=== PATIENT | female | born 2000 | race Caucasian/White ===

== ENCOUNTER → 2018-04-07 | Outpatient (CLI) | payer OTHER ==
--- NOTE | 2018-04-07 16:52 | US ---
EXAMINATION TYPE: Transabdominal DATE OF EXAM: 07/28/17 COMPARISON: CLINICAL HISTORY: O76 Absent Heart tones. Unable to get heart tones in office EXAM PERFORMED: Transabdominal (TA) EXAM MEASUREMENTS: GESTATIONAL AGE / DATING Physician Established: (11 weeks/1 days) EDC: 10/26/2018 Dates by Current Scan for: (11 weeks/3 days) EDC: 10/24/2018 MATERNAL ANATOMY Uterus: 10.7 x 7.0 x 7.7 Right Ovary: 2.7 x 1.7 x 1.7 cm Left Ovary: 3.0 x 1.8 x 2.0 cm Post CDS / Adnexa: no free fluid Presence of free fluid: no Presence of corpus luteal cyst: no Presence of subchorionic bleed: no GESTATION / SURVEY CRL: 4.6 cm (11 weeks/3 days) MSD: seen, not measured Yolk Sac (normal less than 6mm): not visualized Heart Rate: 161 bpm Rhythm: Normal IUP: Viable IUP Date of LMP: 01/10/2018, G1 Beta HcG (if available): Not available at this time Single live IUP measuring 11 weeks 3 days IMPRESSION: Ultrasound gestational age is 11 weeks 3 days. No complicating process seen. Amniotic fluid is adequa te.
[2018-04-07 18:17] LABS: HCT 43.2 % (34.0-46.0); HGB 14.8 gm/dL (11.4-16.0); MCH 29.1 pg (25.0-35.0); MCHC 34.2 g/dL (31.0-37.0); MCV 85.2 fL (80.0-100.0); Mean Platelet Volume 8.6; Platelet Count 197 k/uL (150-450); RBC 5.07 m/uL (3.80-5.40); RDW 13.1 % (11.5-15.5)
[2018-04-07 18:24] LABS: Glucose 73 mg/dL (74-99)
[2018-04-08 06:02] LABS: Toxoplasma Antibody (IgG) <3.0 IU/mL (<7.2); Toxoplasma Antibody (IgM) <3.0 AU/mL (<8.0)
== END | disposition home or self-care (01) ==
LOC: RADUSWWP 16:18
PROVIDERS: ATTEND Obstetrics & Gynecology
DX: O76 Abnormality in fetal heart rate and rhythm complicating labor and delivery (principal); Z34.01 Encounter for supervision of normal first pregnancy, first trimester; Z3A.11 11 weeks gestation of pregnancy
CPT/HCPCS: 76801; 82565; 82947; 85027; 86762; 86777; 86778; 86780; 86850; 86900; 86901; 87340

== ENCOUNTER 2018-08-24 10:41 | Outpatient (CLI) | payer OTHER ==
[2018-08-24 11:24] LABS: Appearance,Urine Clear (Clear); Bilirubin,Urine Negative (Negative); Blood,Urine Negative (Negative); Color,Urine Light Yellow; Glucose,Urine (UA) Negative (Negative); Ketones,Urine Negative (Negative); Leukocyte Esterase,Urine Negative (Negative); Nitrite,Urine Negative (Negative); Protein,Urine Negative (Negative); Specific Gravity,Urine 1.006 (1.001-1.035); Urobilinogen,Urine <2.0 mg/dL (<2.0)
[2018-08-24 11:35] LABS: Creatinine,Urine Random 42.2 mg/dL
[2018-08-24 11:41] VITALS: BP 146/89; PULSE 88; RESP 16; TEMP 96.5
--- NOTE | 2018-09-02 16:34 | P.MSEPDOC ---
Presenting Problems - Arrival Data Date of Arrival on Unit: 08/24/18 Time of Arrival on Unit: 10:38 Mode of Transport: Ambulatory - Complaint OB-Reason for Admission/Chief Complaint: PIH, Elevated Blood Pressure Comment: sent from office for elevated BPs Medical History - Information : 1 Para: 0 Term: 0 : 0 Abortions: Spontaneous or Elective: 0 Number of Living Children: 0 - Gestational Age Gestational Age by NAY (wks/days): 30 Weeks and 6 Days - History Complications: Smoker Review of Systems - Review of Systems Constitutional: No problems Breast: No problems ENT: No problems Cardiovascular: No problems Respiratory: No problems Gastrointestinal: No problems Genitourinary: No problems Musculoskeletal: No problems Neurological: No problems Skin: No problems Vital Signs - Temperature Temperature: 96.5 F Temperature Source: Temporal Artery Scan - Pulse Right Pulse Rate: 88 Pulse Assessment Method: Pulse Oximetry - Respirations Respiratory Rate: 16 O2 Sat by Pulse Oximetry: 97 - Blood Pressure Right Arm Blood Pressure: 146/89 Blood Pressure Mean: 108 Blood Pressure Source: Automatic Cuff Medical Screen Scoring (Pre) - Cervical Exam Dilation: Exam Deferred Effacement: Exam Deferred - Uterine Contractions Frequency: N/A Duration: N/A Intensity: N/A - Maternal Vital Signs Maternal Blood Pressure: Systolic >139 = 2 Signs of Preeclampsia: N/A Maternal Respirations: N/A - Pain Assessment Pain Intensity: 0 - Assessment Baseline FHR: 130 Heart Rate - NICHD Category: Category I (Normal) = 0 NST: Reactive Position: N/A - Total Score Total Score (Pre): 2 - Level of Risk Level of Risk: Low (0-5) Physician Notification (Pre) - Physician Notified Physician Notified Date: 08/24/18 Physician Notified Time: 11:15 Physician/Practitioner Notifed:: Dr Cavanaugh - Notification Comment Comment: Dr Cavanaugh called unit for update. Reported on BPs here, labs from [facility], UA pending, reactive NST, no PIH s/sx. Orders to d/c home with instructions, do no wait for UA, pt needs to go to office Thursday for BP check, and return to triage with worsening sx. Disposition - Disposition OB Disposition: Discharge to home Discharge Date: 08/24/18 Discharge Time: 11:30 I agree with the RN Medical Screening Exam: Yes Risk & Benefit of care provided described in d/c instruction: Yes Diagnosis: GESTATIONAL HTN W/O SIGNIFICANT PROTEINURIA, THIRD TRIMESTER
== END 2018-08-24 11:30 | disposition home or self-care (01) ==
LOC: FBPOP 10:41
PROVIDERS: ATTEND Obstetrics & Gynecology
DX: O13.3 Gestational [pregnancy-induced] hypertension without significant proteinuria, third trimester (principal); O99.333 Smoking (tobacco) complicating pregnancy, third trimester; F17.200 Nicotine dependence, unspecified, uncomplicated; Z3A.30 30 weeks gestation of pregnancy
CPT/HCPCS: 59025; 81003; 82570; 84156

== ENCOUNTER → 2018-08-24 | Outpatient (CLI) | payer OTHER ==
[2018-08-24 10:23] LABS: HCT 40.8 % (34.0-46.0); HGB 13.5 gm/dL (11.4-16.0); MCH 29.4 pg (25.0-35.0); MCHC 33.1 g/dL (31.0-37.0); MCV 88.8 fL (80.0-100.0); Mean Platelet Volume 9.1; Platelet Count 180 k/uL (150-450); RDW 14.4 % (11.5-15.5); WBC 9.8 k/uL (4.0-11.0)
[2018-08-24 10:48] LABS: ALT 20 U/L (9-52); AST 15 U/L (14-36); Blood Urea Nitrogen 5 mg/dL (7-17); LDH 392 U/L (313-618); Uric Acid 3.8 mg/dL (3.7-7.4)
== END | disposition home or self-care (01) ==
LOC: LABWHC1 09:33
PROVIDERS: ATTEND Obstetrics & Gynecology
DX: O13.9 Gestational [pregnancy-induced] hypertension without significant proteinuria, unspecified trimester (principal); Z3A.00 Weeks of gestation of pregnancy not specified
CPT/HCPCS: 36415; 82565; 83615; 84450; 84460; 84520; 84550; 85027

== ENCOUNTER 2018-08-25 13:49 | Outpatient (CLI) | payer OTHER ==
[2018-08-25 14:23] LABS: Amorphous Sediment,Urine Rare /hpf; Appearance,Urine Cloudy (Clear); Bilirubin,Urine Negative (Negative); Blood,Urine Negative (Negative); Color,Urine Yellow; Glucose,Urine (UA) Negative (Negative); Ketones,Urine 1+ (Negative); Leukocyte Esterase,Urine Negative (Negative); Mucus,Urine Occasional /hpf; Nitrite,Urine Negative (Negative); PH, Urine 6.5 (5.0-8.0); Protein,Urine Trace (Negative); Specific Gravity,Urine 1.026 (1.001-1.035); Squamous Epithelial Cell,Urine 4 /hpf (0-4); Urobilinogen,Urine <2.0 mg/dL (<2.0); WBC,Urine 3 /hpf (0-5)
[2018-08-25 14:51] LABS: Basophils % (A) 0 %; Eosinophils # (A) 0.1 k/uL (0-0.7); Eosinophils % (A) 1 %; HCT 37.1 % (34.0-46.0); HGB 12.6 gm/dL (11.4-16.0); Lymphocytes # (A) 1.7 k/uL (1.0-4.8); Lymphocytes % (A) 16 %; MCHC 33.9 g/dL (31.0-37.0); MCV 88.6 fL (80.0-100.0); Mean Platelet Volume 8.8; Monocytes # (A) 0.7 k/uL (0-1.0); Monocytes % (A) 7 %; Neutrophils % (A) 74 %; Platelet Count 188 k/uL (150-450); RBC 4.19 m/uL (3.80-5.40); RDW 13.7 % (11.5-15.5); WBC 10.9 k/uL (4.0-11.0)
[2018-08-25 14:59] LABS: ALT 16 U/L (9-52); AST 15 U/L (14-36); Blood Urea Nitrogen 8 mg/dL (7-17); LDH 338 U/L (313-618); Uric Acid 3.8 mg/dL (3.7-7.4)
[2018-08-25 15:05] VITALS: RESP 18; TEMP 96.8
[2018-08-25 15:14] LABS: Amphetamine Screen,Urine Not Detected (NotDetected); Barbiturate Screen,Urine Not Detected (NotDetected); Benzodiazepines Screen,Urine Not Detected (NotDetected); Cocaine Screen,Urine Not Detected (NotDetected); Methadone Screen, Urine Not Detected (NotDetected); Opiate Screen,Urine Not Detected (NotDetected); Oxycodone Screen, Urine Not Detected (NotDetected); Phencyclidine Screen,Urine Not Detected (NotDetected); Tricyclic Antidepressant,Urine Not Detected (NotDetected); Urn Cannabinoid Scrn Detected (NotDetected)
[2018-08-25 16:16] VITALS: BP 142/81; PULSE 93
--- NOTE | 2018-09-06 08:29 | P.MSEPDOC ---
Presenting Problems - Arrival Data Date of Arrival on Unit: 08/25/18 Time of Arrival on Unit: 13:49 Mode of Transport: Ambulatory - Complaint OB-Reason for Admission/Chief Complaint: Elevated Blood Pressure, Dizziness Comment: pt states having elevated bp at home 154/95 and 160/80's and some dizziness Medical History - Information : 1 Para: 0 Term: 0 : 0 Abortions: Spontaneous or Elective: 0 Number of Living Children: 0 - Gestational Age Gestational Age by NAY (wks/days): 31 Weeks and 0 Days Review of Systems - Review of Systems Constitutional: No problems Breast: No problems ENT: No problems Cardiovascular: No problems Respiratory: No problems Gastrointestinal: No problems Genitourinary: No problems Musculoskeletal: No problems Neurological: No problems Skin: No problems Vital Signs - Temperature Temperature: 96.8 F Temperature Source: Temporal Artery Scan - Pulse Right Brachial Pulse Rate: 93 Pulse Assessment Method: Automatic Cuff - Respirations Respiratory Rate: 18 Oxygen Delivery Method: Room Air - Blood Pressure Right Arm Blood Pressure: 142/81 Blood Pressure Mean: 101 Blood Pressure Source: Automatic Cuff Medical Screen Scoring (Pre) - Cervical Exam Dilation: Exam Deferred Effacement: Exam Deferred Membranes: Intact - Uterine Contractions Frequency: N/A Duration: N/A Intensity: N/A - Maternal Vital Signs Maternal Temperature: N/A Maternal Blood Pressure: Systolic >139 = 2 Signs of Preeclampsia: Headache = 1, Visual Disturbance = 1 Maternal Respirations: N/A - Pain Assessment Pain Location and Character: Head Pain Scale Used: Numeric (1 - 10) Pain Intensity: 2 Pain Description: *Acute, Aching Pain Behavior: None Exhibited Pain Aggravating Factors: None - Maternal Trauma Maternal Trauma: N/A - Assessment Baseline FHR: 135 Heart Rate - NICHD Category: Category I (Normal) = 0 NST: Reactive Position: N/A Station: N/A - Total Score Total Score (Pre): 4 - Level of Risk Level of Risk: Low (0-5) Physician Notification (Pre) - Physician Notified Physician Notified Date: 08/25/18 Physician Notified Time: 14:23 Physician/Practitioner Notifed:: Dr. Jaeger Spoke With: Dr. Jaeger New Order Received: Yes - Notification Comment Comment: repeat PIH labs, has hx of THC use, UDS ordered, will call her with results and updated bp's Medical Screen Scoring (Post) - Cervical Exam Dilation: Exam Deferred Effacement: Exam Deferred Membranes: Intact - Uterine Contractions Frequency: N/A Duration: N/A Intensity: N/A - Maternal Vital Signs Maternal Temperature: N/A Maternal Blood Pressure: Systolic >139 = 2 Signs of Preeclampsia: N/A, Headache = 1, Visual Disturbance = 1 Maternal Respirations: N/A - Pain Assessment Pain Scale Used: Numeric (1 - 10) Pain Intensity: 0 - Maternal Trauma Maternal Trauma: N/A - Assessment Heart Rate: 135 Heart Rate - NICHD Category: Category I (Normal) = 0 NST: Reactive Position: N/A Station: N/A - Total Score Total Score (Post): 4 - Post Treatment Level of Risk Post Treatment Level of Risk: Low (0-5) Physician Notification (Post) - Physician Notified Physician Notified Date: 08/25/18 Physician Notified Time: 15:32 Physician/Practitioner Notified:: Dr. Jaeger Spoke With: Dr. Jaeger New Order Received: Yes - Notification Comment Comment: Pt discharged home with instructions to go to office tomorrow and get bp and nst recheck and keep MFM appt on August 30, may check bp's at home couple times a day, if systolic is 160 or greater or diastolic is 110 or greater consistently with symptoms, she is to return to get assessed, Disposition - Disposition OB Disposition: Triage, Discharge to home, Written follow up instructions reviewed Discharge Date: 08/25/18 Discharge Time: 15:45 I agree with the RN Medical Screening Exam: Yes Risk & Benefit of care provided described in d/c instruction: Yes Diagnosis: GESTATIONAL HTN W/O SIGNIFICANT PROTEINURIA, UNSP TRIMESTER
== END 2018-08-25 15:45 | disposition home or self-care (01) ==
LOC: FBPOP 13:49
PROVIDERS: ATTEND Obstetrics & Gynecology
DX: O13.3 Gestational [pregnancy-induced] hypertension without significant proteinuria, third trimester (principal); Z3A.31 31 weeks gestation of pregnancy
CPT/HCPCS: 59025; 82570; 84156; 82565; 83615; 84450; 84460; 84520; 84550; 85025; 81001; 80306; G0463; 99215

== ENCOUNTER 2018-08-29 01:00 | Observation (INO) | payer OTHER ==
[2018-08-29 01:44] LABS: Amorphous Sediment,Urine Occasional /hpf; Amphetamine Screen,Urine Not Detected (NotDetected); Appearance,Urine Cloudy (Clear); Bacteria,Urine Rare /hpf; Barbiturate Screen,Urine Not Detected (NotDetected); Benzodiazepines Screen,Urine Not Detected (NotDetected); Bilirubin,Urine Negative (Negative); Blood,Urine Negative (Negative); Cocaine Screen,Urine Not Detected (NotDetected); Color,Urine Light Yellow; Glucose,Urine (UA) Negative (Negative); Ketones,Urine Negative (Negative); Leukocyte Esterase,Urine Negative (Negative); Methadone Screen, Urine Not Detected (NotDetected); Mucus,Urine Rare /hpf; Nitrite,Urine Negative (Negative); Opiate Screen,Urine Not Detected (NotDetected); Oxycodone Screen, Urine Not Detected (NotDetected); PH, Urine 6.5 (5.0-8.0); Phencyclidine Screen,Urine Not Detected (NotDetected); Protein,Urine Negative (Negative); Specific Gravity,Urine 1.009 (1.001-1.035); Squamous Epithelial Cell,Urine 1 /hpf (0-4); Tricyclic Antidepressant,Urine Not Detected (NotDetected); Urn Cannabinoid Scrn Detected (NotDetected); Urobilinogen,Urine <2.0 mg/dL (<2.0); WBC,Urine 3 /hpf (0-5)
[2018-08-29 01:53] LABS: Basophils % (A) 0 %; Eosinophils # (A) 0.2 k/uL (0-0.7); Eosinophils % (A) 1 %; HCT 36.3 % (34.0-46.0); HGB 12.5 gm/dL (11.4-16.0); Lymphocytes # (A) 2.1 k/uL (1.0-4.8); Lymphocytes % (A) 18 %; MCH 30.2 pg (25.0-35.0); MCHC 34.5 g/dL (31.0-37.0); MCV 87.4 fL (80.0-100.0); Mean Platelet Volume 8.9; Monocytes # (A) 0.9 k/uL (0-1.0); Monocytes % (A) 7 %; Neutrophils # (A) 8.2 k/uL (1.3-7.7); Neutrophils % (A) 70 %; Platelet Count 168 k/uL (150-450); RBC 4.15 m/uL (3.80-5.40); RDW 13.5 % (11.5-15.5); WBC 11.7 k/uL (4.0-11.0)
[2018-08-29 01:56] LABS: ALT 15 U/L (9-52); AST 15 U/L (14-36); Blood Urea Nitrogen 8 mg/dL (7-17); LDH 347 U/L (313-618)
[2018-08-29 02:55] VITALS: BMI 35.4
--- NOTE | 2018-08-29 08:00 | P.HPOB ---
History of Present Illness H&P Date: 08/29/18 Chief Complaint: Headache and hypertension. This patient is a 18-year-old 1 para 0 female estimated date of confinement 10/27/2018 estimated gestational age 31-4/7 weeks who presented to [facility] last evening after having a headache that did not go a way with Tylenol. Patient's care is per Dr. Cavanaugh and most recently has been seen him for gestational hypertension. Patient was in the office on August 24 had a blood pressure 150/90 and at that time was sent to labor and delivery for evaluation of preeclampsia. These labs were normal. Patient continued to have some elevated blood pressures apparently at home and return to the office on August 26. At that time blood pressures continued to be elevated is 130-140/90-100. Patient states that last evening she developed a headache and took some Tylenol and it did not really headache therefore she went to [facility]. Emergency department contacted me and I instructed her to come immediately to the [facility] labor and delivery for evaluation. Patient's was complicated by an abnormal ultrasound for which she was referred to [facility]. Ultrasound there approximately 1 month ago shows some synechia but no evidence of any abnormalities. Patient's also apparently been using marijuana throughout the . Patient states that her blood pressures at home were in the range of 160-170 systolic. Review of Systems Constitutional: Reports as per HPI Genitourinary: Reports Menstruation: Reports amenorrhea Neurological: Reports headaches Past Medical History Past Medical History: Musculoskeletal Disorder Additional Past Medical History / Comment(s): scoliosis History of Any Multi-Drug Resistant Organisms: None Reported Past Surgical History: No Surgical Hx Reported Past Anesthesia/Blood Transfusion Reactions: No Reported Reaction Past Psychological History: Depression Additional Psychological History / Comment(s): not diagnosed, no meds Smoking Status: Current some day smoker Past Alcohol Use History: None Reported Past Drug Use History: Marijuana Additional Drug Use History / Comment(s): positive urine screen - Past Family History Father Family Medical History: Coronary Artery Disease (CAD) Mother Family Medical History: Hypertension Medications and Allergies Home Medications Medication Instructions Recorded Confirmed Type No Known Home Medications 08/24/18 08/25/18 History Allergies Allergy/AdvReac Type Severity Reaction Status Date / Time amoxicillin Allergy Severe Swelling Verified 08/29/18 01:07 medroxyprogesterone Allergy Severe Swelling Verified 08/29/18 01:07 [From Depo-Provera] Exam Vital Signs Temp Pulse Resp BP Pulse Ox 08/29/18 02:36 70 16 152/75 08/29/18 01:07 97.0 F L 59 L 16 138/81 97 Intake and Output 08/28/18 08/29/18 08/29/18 22:59 06:59 14:59 Other: Weight 102.603 kg Results labs show she is B positive, hepatitis B is negative, HIV is nonreactive, rubella is immune, RPR is nonreactive, Glucola was unavailable. Ultrasound done by maternal medicine on August 05 showed a vertex infant 1254 g which is at the 59th percentile with normal anatomy. Random protein to creatinine ratio is 0.32 which is mildly elevated. Result Diagrams: 08/29/18 01:25 08/29/18 01:25 Abnormal Lab Results - Last 24 Hours (Table) 08/29/18 08/29/18 08/29/18 Range/Units 01:10 01:10 01:10 WBC (4.0-11.0) k/uL Neutrophils # (1.3-7.7) k/uL Creatinine (0.52-1.04) mg/dL Urine Appearance Cloudy H (Clear) Amorphous Sediment Occasional H (None) /hpf Urine Bacteria Rare H (None) /hpf Urine Mucus Rare H (None) /hpf U Random Total Protein 20 H (<12) mg/dL U Marijuana (THC) Screen Detected H (NotDetected) 08/29/18 08/29/18 Range/Units 01:25 01:25 WBC 11.7 H (4.0-11.0) k/uL Neutrophils # 8.2 H (1.3-7.7) k/uL Creatinine 0.49 L (0.52-1.04) mg/dL Urine Appearance (Clear) Amorphous Sediment (None) /hpf Urine Bacteria (None) /hpf Urine Mucus (None) /hpf U Random Total Protein (<12) mg/dL U Marijuana (THC) Screen (NotDetected) Assessment and Plan Assessment: This is a 18-year-old 1 para 0 female 31 4/7 weeks gestation who is admitted for evaluation of gestational hypertension possible early preeclampsia. Patient also has continuing substance abuse (marijuana) issues. Patient's blood pressures on admission here ranged from 132-152/75-88. Preeclampsia labs were repeated and normal however her random protein to creatinine ratio was mildly elevated at 0.32. Patient is also having persistence of a headache. Plan at this time is to continue inpatient evaluation. I'm going to repeat her blood work in the morning and begin a 24-hour urine. I'm also going to get a complete obstetrical ultrasound to check growth and fluid indices. Continue antepartum surveillance with NSTs every shift. Due to concern for evolving preeclampsia and prematurity I believe she will benefit at this time from beginning a course of Celestone. If patient were to develop worsening symptomatology or evolving preeclampsia then should be needed transferred to a tertiary facility for further evaluation and delivery. (1) 31 to 32 weeks gestation of Current Visit: Yes Status: Acute Code(s): [id number] - SNOMED Code(s): 31 0845475 (2) Gestational hypertension Current Visit: Yes Status: Acute Code(s): O13.9 - GESTATIONAL HTN W/O SIGNIFICANT PROTEINURIA, UNSP TRIMESTER SNOMED Code(s): 840867448 (3) Substance abuse affecting in third trimester, antepartum Current Visit: Yes Status: Acute Code(s): O99.323 - DRUG USE COMPLICATING , THIRD TRIMESTER SNOMED Code(s): 65524540
[2018-08-29] MEDS: BETAMET ACET-BETAMETH SOD PHOS 6 MG/ML VIAL IM SCH (08:11)
--- NOTE | 2018-08-29 08:43 | US ---
EXAMINATION TYPE: US OB >= 14 wk fetus DATE OF EXAM: 08/29/2018 COMPARISON: US CLINICAL HISTORY: Gestational hypertension HTN TECHNIQUE: Transabdominal (TA) GESTATIONAL AGE / DATING Physician Established: (31 weeks/4 days) EDC: 10/27/2018 Dates by First Scan: (32 weeks/0 days) EDC: 10/24/2018 Dates by Current Scan: (31 weeks/6 days) EDC: 10/25/2018 SURVEY IUP: Single PLACENTA: Anterior PREVIA: No Previa CHANG: 8.9 cm Oligohydramnios CERVICAL LENGTH (transabdominal: norm > 3.0cm): 3.8 cm BIOMETRY PRESENTATION: Vertex BPD: 8.4 cm 33 weeks / 5 days HC: 30.0 cm 32 weeks / 6 days AC: 27.5 cm 31 weeks / 4 days FL: 6.1 cm 31 weeks / 4 days ESTIMATED WEIGHT IN GRAMS: 1857 grams ESTIMATED WEIGHT IN LBS/OZ: 4 lbs. 2 oz. WEIGHT PERCENTAGE BASED ON ESTABLISHED DATES: 48.6% HC/AC: 1.08 Normal FL/AC: 22 Normal HEART RATE: 152 bpm RHYTHM: Normal Results given to Dr. Carl in L&D at time of exam IMPRESSION: BHATIA FETUS PRESENT IN A VERTEX LIE WITH A GESTATIONAL AGE OF 31 WEEKS 6 DAYS +/- 3 WEEKS. ESTIMA MARISSA DATE OF CONFINEMENT BASED ON THIS EXAMINATION IS 10/25/2018. THE TECHNOLOGIST COMMENTED ON OLIGOHYDRAMNIOS BUT THE AMNIOTIC FLUID INDEX OF 8.92 IS LOW BUT WITHIN NORMAL LIMITS.
--- NOTE | 2018-08-29 10:04 | P.MSEPDOC ---
Presenting Problems - Arrival Data Date of Arrival on Unit: 08/29/18 Time of Arrival on Unit: : Mode of Transport: Bed - Complaint OB-Reason for Admission/Chief Complaint: Headache, Elevated Blood Pressure Comment: states pressure elevated at home 160/100 Medical History - Information : 1 Para: 0 Term: 0 : 0 Abortions: Spontaneous or Elective: 0 Number of Living Children: 0 - Gestational Age Gestational Age by NAY (wks/days): 31 Weeks and 4 Days Review of Systems - Review of Systems Constitutional: No problems Breast: No problems ENT: No problems Cardiovascular: No problems Respiratory: No problems Gastrointestinal: No problems Genitourinary: No problems Musculoskeletal: No problems Neurological: No problems Skin: No problems Vital Signs - Temperature Temperature: 98.3 F Temperature Source: Temporal Artery Scan - Pulse Right Sitting Brachial Pulse Rate: 75 Pulse Assessment Method: Automatic Cuff - Respirations Respiratory Rate: 16 Oxygen Delivery Method: Room Air - Blood Pressure Right Arm Sitting Blood Pressure: 132/88 Blood Pressure Mean: 102 Blood Pressure Source: Automatic Cuff Medical Screen Scoring (Pre) - Cervical Exam Dilation: Exam Deferred Effacement: Exam Deferred Membranes: Intact - Uterine Contractions Frequency: N/A Duration: N/A Intensity: N/A - Maternal Vital Signs Maternal Temperature: N/A Maternal Blood Pressure: N/A Signs of Preeclampsia: Headache = 1 Maternal Respirations: N/A - Pain Assessment Pain Location and Character: Head Pain Scale Used: Numeric (1 - 10) Pain Intensity: 8 Pain Description: *Acute, Aching Pain Frequency: Constant Pain Duration: 11 Pain Duration Units: Hours Pain Behavior: None Exhibited Pain Aggravating Factors: None - Maternal Trauma Maternal Trauma: N/A - Assessment Baseline FHR: 130 Heart Rate - NICHD Category: Category I (Normal) = 0 NST: Reactive Position: N/A Station: N/A - Total Score Total Score (Pre): 1 - Level of Risk Level of Risk: Low (0-5) Physician Notification (Post) - Physician Notified Physician Notified Date: 08/29/18 Physician Notified Time: : Spoke With: Meseret Negrete Order Received: Yes (Admit OBV, 24 hour urine) Disposition - Disposition OB Disposition: Admit, Observe I agree with the RN Medical Screening Exam: Yes Risk & Benefit of care provided described in d/c instruction: Yes Diagnosis: GESTATIONAL HTN W/O SIGNIFICANT PROTEINURIA, THIRD TRIMESTER (Admission for evaluation.)
[2018-08-29] MEDS ORDERED: CALCIUM CARBONATE 500 MG CHEWABLE PO PRN (17:29)
[2018-08-30 00:28] VITALS: RESP 16
[2018-08-30 06:19] LABS: Basophils % (A) 0 %; Eosinophils % (A) 0 %; HCT 36.9 % (34.0-46.0); HGB 12.4 gm/dL (11.4-16.0); Lymphocytes % (A) 15 %; MCH 29.8 pg (25.0-35.0); MCHC 33.6 g/dL (31.0-37.0); MCV 88.6 fL (80.0-100.0); Mean Platelet Volume 8.7; Monocytes # (A) 0.9 k/uL (0-1.0); Monocytes % (A) 6 %; Neutrophils # (A) 10.7 k/uL (1.3-7.7); Neutrophils % (A) 76 %; Platelet Count 176 k/uL (150-450); RBC 4.17 m/uL (3.80-5.40); RDW 13.5 % (11.5-15.5); WBC 14.1 k/uL (4.0-11.0)
[2018-08-30 06:27] LABS: Albumin 3.5 g/dL (3.5-5.0); Bilirubin,Unconjugated 0.4 mg/dL (0.0-1.1); Total Bilirubin 0.4 mg/dL (0.2-1.3); Total Protein 6.3 g/dL (6.3-8.2); Uric Acid 4.9 mg/dL (3.7-7.4)
[2018-08-30] MEDS: BETAMET ACET-BETAMETH SOD PHOS 6 MG/ML VIAL IM SCH (08:10)
[2018-08-30 12:42] VITALS: BP 140/80; PULSE 56; TEMP 97.2
--- NOTE | 2018-08-30 13:06 | P.DS ---
Providers Date of admission: 08/29/18 02:20 Expected date of discharge: 08/30/18 Attending physician: Lester Cavanaugh Primary care physician: Lester Cavanaugh [facility] Course: Vaishali and seen and evaluated 2 times this morning. She voices no complaints her blood pressures remained stable in the 140s over 80s range. It is slightly elevated and likely represents mild preeclampsia. Her creatinine protein ratio was 0.31 and her total protein for 24 hours 414. Her platelets are normal is TLT were normal on physical exam vital signs otherwise are stable, heart regular, lungs clear, extremities without pain. There is no tenderness to epigastrium nor visual changes or headache is now resolved. It is also noted that she has normal 2+ deep tendon reflexes and no clonus. Therefore after discussion with the patient and is in speaking with the maternal- medicine specialist will plan to discharge her to home. She has an appointment there is been scheduled for at 9:30 in the morning and she will attend that appointment with maternal medicine to address any other changes that may be necessary as she is only 31 weeks gestation. She is aware should she have any significant elevations in her blood pressure which she is checking intermittently at home taking about 150/90-95 she is to report back to labor and delivery. She is also aware should she have any significant headaches, epigastric pain, visual changes or other signs or symptoms that could be operations representative of preeclampsia she needs to return to labor and delivery. She has scant peripheral edema at this time as well. As she is only 31 weeks she did receive a dose steroids for lung maturity just in case she needs to be delivered. As she is stable and this appears to mild preeclampsia Will try manage this on an outpatient basis for now but she is aware that she should be on modified bedrest and that there are any changes to her condition that she may end up being transferred or potentially need to be delivered early. All the questions were answered for her at this time. We'll discharged home with instructions to follow-up with maternal medicine on and then with me on Thursday. Patient Condition at Discharge: Stable Plan - Discharge Summary New Discharge Prescriptions: No Action No Known Home Medications Discharge Medication List No Known Home Medications 08/24/18 [History] Discharge Disposition: HOME SELF-CARE
== END 2018-08-30 12:35 | disposition home or self-care (01) ==
LOC: FBPOP 01:00 → 4FBP 02:20
PROVIDERS: ADMIT Obstetrics & Gynecology; ATTEND Obstetrics & Gynecology
DX: O13.3 Gestational [pregnancy-induced] hypertension without significant proteinuria, third trimester (principal); O99.323 Drug use complicating pregnancy, third trimester; F12.10 Cannabis abuse, uncomplicated; O99.343 Other mental disorders complicating pregnancy, third trimester; F32.9 Major depressive disorder, single episode, unspecified; O99.333 Smoking (tobacco) complicating pregnancy, third trimester; F17.200 Nicotine dependence, unspecified, uncomplicated; O99.89 Other specified diseases and conditions complicating pregnancy, childbirth and the puerperium; M41.9 Scoliosis, unspecified; Z88.0 Allergy status to penicillin; Z88.8 Allergy status to other drugs, medicaments and biological substances; Z3A.31 31 weeks gestation of pregnancy; Z82.49 Family history of ischemic heart disease and other diseases of the circulatory system
CPT/HCPCS: 59025; 96372 ×2; 82570; 80076; 84156 ×2; 81050; 82565; 83615 ×2; 84450; 84460; 84520; 84550 ×2; 85025 ×2; 81001; 80306; 76805; G0378 ×2; G0463; J0702 ×2; 99215

== ENCOUNTER 2018-09-06 10:53 | Outpatient (CLI) | payer OTHER ==
[2018-09-06 11:28] LABS: Appearance,Urine Clear (Clear); Bilirubin,Urine Negative (Negative); Blood,Urine Negative (Negative); Color,Urine Yellow; Glucose,Urine (UA) Negative (Negative); Ketones,Urine Negative (Negative); Leukocyte Esterase,Urine Negative (Negative); Mucus,Urine Few /hpf; Nitrite,Urine Negative (Negative); PH, Urine 7.5 (5.0-8.0); Protein,Urine 1+ (Negative); RBC,Urine 1 /hpf (0-5); Specific Gravity,Urine 1.026 (1.001-1.035); Squamous Epithelial Cell,Urine 6 /hpf (0-4); Urobilinogen,Urine <2.0 mg/dL (<2.0); WBC,Urine 3 /hpf (0-5)
[2018-09-06 11:49] LABS: ALT 12 U/L (9-52); AST 14 U/L (14-36); Blood Urea Nitrogen 7 mg/dL (7-17); LDH 353 U/L (313-618); Uric Acid 4.6 mg/dL (3.7-7.4)
[2018-09-06 12:16] LABS: Basophils % (A) 0 %; Eosinophils # (A) 0.1 k/uL (0-0.7); Eosinophils % (A) 1 %; HCT 38.4 % (34.0-46.0); HGB 12.4 gm/dL (11.4-16.0); Lymphocytes # (A) 1.9 k/uL (1.0-4.8); Lymphocytes % (A) 20 %; MCH 28.8 pg (25.0-35.0); MCHC 32.3 g/dL (31.0-37.0); MCV 89.2 fL (80.0-100.0); Monocytes # (A) 0.8 k/uL (0-1.0); Monocytes % (A) 8 %; Neutrophils # (A) 6.5 k/uL (1.3-7.7); Neutrophils % (A) 68 %; Platelet Count 188 k/uL (150-450); RBC 4.31 m/uL (3.80-5.40); RDW 13.7 % (11.5-15.5); WBC 9.5 k/uL (4.0-11.0)
--- NOTE | 2018-09-06 12:40 | US ---
EXAMINATION TYPE: US OB BPP wo non-stress DATE OF EXAM: 09/06/2018 COMPARISON: NONE CLINICAL HISTORY: 18-year-old female Pre-eclampsia. EXAM PERFORMED: Transabdominal (TA) FINDINGS: BPP PARAMETERS: PRESENTATION: vertex HEART RATE: 140 bpm RHYTHM: Normal CHANG: 10.3 cm (normal 7.5 - 27.3) DIAPHRAGM IMAGED: Yes BPP SCORIN. Breathin (1 episode of breathing of 30 second duration in 30 minutes of scanning time) 2. Movement: 2 (at least 3 discrete body movements in 30 minutes) 3. Tone: 2 (1 episode of active flexion/extension of limb) 4. CHANG: 2 (CHANG index > 5cm) TOTAL SCORE: 8 / 8 Report given to Wilma. IMPRESSION: Real-time scanning by the platinumsmith with a biophysical profile score assigned: 8 out of 8.
--- NOTE | 2018-09-15 08:16 | P.MSEPDOC ---
Presenting Problems - Arrival Data Date of Arrival on Unit: 09/06/18 Time of Arrival on Unit: 10:53 Mode of Transport: Ambulatory - Complaint OB-Reason for Admission/Chief Complaint: PIH Comment: sent from office with orders for pre-eclampsia labs, bpp and nst Medical History - Information : 1 Para: 0 Term: 0 : 0 Abortions: Spontaneous or Elective: 0 Number of Living Children: 0 - Gestational Age Gestational Age by NAY (wks/days): 32 Weeks and 5 Days - History Complications: Preeclampsia Physician Notification (Pre) - Physician Notified Physician Notified Date: 09/06/18 Physician Notified Time: 12:27 Physician/Practitioner Notifed:: Afshan Negrete Order Received: No (d/c home) Disposition - Disposition OB Disposition: Discharge to home Discharge Date: 09/06/18 Discharge Time: 12:30 I agree with the RN Medical Screening Exam: Yes Risk & Benefit of care provided described in d/c instruction: Yes Diagnosis: GESTATIONAL PROTEINURIA, THIRD TRIMESTER
== END 2018-09-06 12:30 | disposition home or self-care (01) ==
LOC: FBPOP 10:53
PROVIDERS: ATTEND Obstetrics & Gynecology
DX: O12.13 Gestational proteinuria, third trimester (principal); Z3A.32 32 weeks gestation of pregnancy
CPT/HCPCS: 59025; 82570; 84156; 82565; 83615; 84450; 84460; 84520; 84550; 85025; 81001; 76819; G0463; 99215

== ENCOUNTER 2018-09-13 11:32 | Outpatient (CLI) | payer OTHER ==
[2018-09-13 12:57] VITALS: BP 135/74; PULSE 93; RESP 18; TEMP 98
[2018-09-13 13:12] LABS: INR 0.9 (<1.2); Partial Thromboplastin Time 26.5 sec (22.0-30.0); Prothrombin Time 9.6 sec (9.0-12.0)
--- NOTE | 2018-09-13 13:13 | US ---
EXAMINATION TYPE: US OB BPP wo non-stress DATE OF EXAM: 09/13/2018 COMPARISON: US CLINICAL HISTORY: preeclampsia. Preeclampsia. EXAM PERFORMED: Transabdominal (TA) BPP PARAMETERS: PRESENTATION: Cephalic HEART RATE: 136 bpm RHYTHM: Normal CHANG: 14.31 DIAPHRAGM IMAGED: Yes BPP SCORIN. Breathin (1 episode of breathing of 30 second duration in 30 minutes of scanning time) 2. Movement: 2 (at least 3 discrete body movements in 30 minutes) 3. Tone: 2 (1 episode of active flexion/extension of limb) 4. CHANG: 2 (CHANG index > 5cm) TOTAL SCORE: 8 / 8
[2018-09-13 13:17] LABS: ALT 11 U/L (9-52); AST 15 U/L (14-36); Blood Urea Nitrogen 7 mg/dL (7-17); LDH 350 U/L (313-618); Total Bilirubin 0.3 mg/dL (0.2-1.3); Uric Acid 5.3 mg/dL (3.7-7.4)
--- NOTE | 2018-09-13 13:23 | US ---
EXAMINATION TYPE: US abdomen limited DATE OF EXAM: 09/13/2018 COMPARISON: NONE CLINICAL HISTORY: Cholestasis/gestational hypertension, substance abuse affecting EXAM MEASUREMENTS: Liver Length: 15.5 cm Gallbladder Wall: 0.28 cm CBD: 0.39 cm Right Kidney: 12.2 x 6.6 x 5.2 cm *Pt 33 weeks, 5 days . Limited study due to gas and body habitus. Pancreas: slightly obscured Liver: appears wnl Gallbladder: Internal echoes seen. ?artifact vs suggestive of sludge Evidence for sonographic Raymond's sign: No CBD: appears wnl Right Kidney: No hydronephrosis or masses seen There is no ascites. IMPRESSION: Exam is somewhat limited. Suspect tumefactive sludge present within the gallbladder.
[2018-09-13 13:30] LABS: Basophils % (A) 0 %; Eosinophils # (A) 0.1 k/uL (0-0.7); Eosinophils % (A) 2 %; HCT 36.3 % (34.0-46.0); HGB 12.1 gm/dL (11.4-16.0); Lymphocytes # (A) 1.8 k/uL (1.0-4.8); Lymphocytes % (A) 21 %; MCH 29.1 pg (25.0-35.0); MCHC 33.3 g/dL (31.0-37.0); MCV 87.4 fL (80.0-100.0); Mean Platelet Volume 9.2; Monocytes # (A) 0.7 k/uL (0-1.0); Monocytes % (A) 8 %; Neutrophils # (A) 5.9 k/uL (1.3-7.7); Neutrophils % (A) 67 %; Platelet Count 166 k/uL (150-450); RBC 4.15 m/uL (3.80-5.40); RDW 14.9 % (11.5-15.5); WBC 8.8 k/uL (4.0-11.0)
[2018-09-13 13:34] LABS: Amorphous Sediment,Urine Occasional /hpf; Appearance,Urine Turbid (Clear); Bilirubin,Urine Negative (Negative); Blood,Urine Negative (Negative); Color,Urine Yellow; Glucose,Urine (UA) Negative (Negative); Ketones,Urine Negative (Negative); Leukocyte Esterase,Urine Trace (Negative); Mucus,Urine Few /hpf; Nitrite,Urine Negative (Negative); Protein,Urine Trace (Negative); Specific Gravity,Urine 1.022 (1.001-1.035); Squamous Epithelial Cell,Urine 6 /hpf (0-4); Urobilinogen,Urine <2.0 mg/dL (<2.0)
--- NOTE | 2018-09-15 17:09 | P.MSEPDOC ---
Presenting Problems - Arrival Data Date of Arrival on Unit: 09/13/18 Time of Arrival on Unit: 11:32 Mode of Transport: Portable - Complaint OB-Reason for Admission/Chief Complaint: PIH Comment: sent from office with script Medical History - Information : 1 Para: 0 Term: 0 : 0 Abortions: Spontaneous or Elective: 0 Number of Living Children: 0 - Gestational Age Gestational Age by NAY (wks/days): 33 Weeks and 5 Days - History Complications: Hx. Substance Abuse Comment: pt states smokes marijuana Review of Systems - Review of Systems Constitutional: No problems Breast: No problems ENT: No problems Cardiovascular: No problems Respiratory: No problems Gastrointestinal: No problems Genitourinary: No problems Musculoskeletal: No problems Neurological: No problems Skin: No problems Vital Signs - Temperature Temperature: 98 F Temperature Source: Temporal Artery Scan - Pulse Right Sitting Brachial Pulse Rate: 93 Pulse Assessment Method: Automatic Cuff - Respirations Respiratory Rate: 18 Oxygen Delivery Method: Room Air O2 Sat by Pulse Oximetry: 97 - Blood Pressure Right Arm Sitting Blood Pressure: 135/74 Blood Pressure Mean: 94 Blood Pressure Source: Automatic Cuff Medical Screen Scoring (Pre) - Cervical Exam Dilation: Exam Deferred Effacement: Exam Deferred Membranes: Intact - Uterine Contractions Frequency: N/A Duration: N/A Intensity: N/A - Maternal Vital Signs Maternal Temperature: N/A Maternal Blood Pressure: N/A Signs of Preeclampsia: N/A Maternal Respirations: N/A - Assessment Baseline FHR: 125 Heart Rate - NICHD Category: Category I (Normal) = 0 NST: Reactive Position: N/A Station: N/A - Total Score Total Score (Pre): 0 - Level of Risk Level of Risk: Low (0-5) Physician Notification (Pre) - Notification Comment Comment: sent from office with script for pih work up and ultrasound Medical Screen Scoring (Post) - Cervical Exam Dilation: Exam Deferred Effacement: Exam Deferred - Uterine Contractions Frequency: N/A - Pain Assessment Pain Scale Used: Numeric (1 - 10) Pain Intensity: 0 - Assessment Heart Rate: 125 Heart Rate - NICHD Category: Category I (Normal) = 0 NST: Reactive - Total Score Total Score (Post): 0 - Post Treatment Level of Risk Post Treatment Level of Risk: Low (0-5) Physician Notification (Post) - Physician Notified Physician Notified Date: 09/13/18 Physician Notified Time: 13:50 Physician/Practitioner Notified:: Dr Cavanaugh Spoke With: Dr Cavanaugh New Order Received: Yes - Notification Comment Comment: May discahrge to home, send out bile salt labs will be available during next appt for review Disposition - Disposition OB Disposition: Discharge to home Discharge Date: 09/13/18 Discharge Time: 14:05 I agree with the RN Medical Screening Exam: Yes Risk & Benefit of care provided described in d/c instruction: Yes Diagnosis: GESTATIONAL HTN W/O SIGNIFICANT PROTEINURIA, THIRD TRIMESTER
== END 2018-09-13 14:05 | disposition home or self-care (01) ==
LOC: FBPOP 11:32
PROVIDERS: ATTEND Obstetrics & Gynecology
DX: O13.3 Gestational [pregnancy-induced] hypertension without significant proteinuria, third trimester (principal); O26.613 Liver and biliary tract disorders in pregnancy, third trimester; Z3A.33 33 weeks gestation of pregnancy
CPT/HCPCS: 59025; 82239; 82570; 84156; 82247; 82565; 83615; 84450; 84460; 84520; 84550; 85025; 85610; 85730; 81001; 87086; 76705; 76819; G0463; 99215

== ENCOUNTER 2018-09-21 02:55 | Outpatient (CLI) | payer OTHER ==
[2018-09-21 03:27] VITALS: BP 134/84; PULSE 94; RESP 16; TEMP 97
--- NOTE | 2018-09-23 08:30 | P.MSEPDOC ---
Presenting Problems - Arrival Data Date of Arrival on Unit: 09/21/18 Time of Arrival on Unit: 02:55 Mode of Transport: Ambulatory - Complaint OB-Reason for Admission/Chief Complaint: Other Comment: Elevated blood pressure at home and increased discomfort from heartburn causing her to vomit Medical History - Information : 1 Para: 0 Term: 0 : 0 Abortions: Spontaneous or Elective: 0 Number of Living Children: 0 - Gestational Age Gestational Age by NAY (wks/days): 34 Weeks and 6 Days - History Complications: Smoker Comment: Patient states that Dr. Cavanaugh thinks she may have "mild pre- eclampsia" in the beginning phase Review of Systems - Review of Systems Constitutional: No problems Breast: No problems ENT: No problems Cardiovascular: No problems Respiratory: No problems Gastrointestinal: No problems Genitourinary: No problems Musculoskeletal: No problems Neurological: No problems Skin: No problems Vital Signs - Temperature Temperature: 97.0 F Temperature Source: Temporal Artery Scan - Pulse Pulse Oximetery Pulse Rate: 94 Pulse Assessment Method: Pulse Oximetry - Respirations Respiratory Rate: 16 Oxygen Delivery Method: Room Air - Blood Pressure Supine Blood Pressure: 134/84 Blood Pressure Mean: 100 Blood Pressure Source: Automatic Cuff Medical Screen Scoring (Pre) - Cervical Exam Dilation: Exam Deferred Effacement: Exam Deferred Membranes: Intact - Uterine Contractions Frequency: N/A Duration: N/A Intensity: N/A - Maternal Vital Signs Maternal Temperature: N/A Maternal Blood Pressure: N/A Signs of Preeclampsia: N/A Maternal Respirations: N/A - Maternal Trauma Maternal Trauma: N/A - Assessment Baseline FHR: 135 Heart Rate - NICHD Category: Category I (Normal) = 0 NST: Reactive Position: N/A Station: N/A - Total Score Total Score (Pre): 0 - Level of Risk Level of Risk: Low (0-5) Physician Notification (Pre) - Physician Notified Physician Notified Date: 09/21/18 Physician Notified Time: 03:16 Physician/Practitioner Notifed:: Dr. Robert Negrete Order Received: Yes - Notification Comment Comment: Okay to discharge patient home with instructions after a reactive NST is obtained. Disposition - Disposition OB Disposition: Discharge to home, Written follow up instructions reviewed Discharge Date: 09/21/18 Discharge Time: 03:38 I agree with the RN Medical Screening Exam: Yes Risk & Benefit of care provided described in d/c instruction: Yes Diagnosis: HEARTBURN
== END 2018-09-21 03:38 | disposition home or self-care (01) ==
LOC: FBPOP 02:55
PROVIDERS: ATTEND Obstetrics & Gynecology
DX: O99.89 Other specified diseases and conditions complicating pregnancy, childbirth and the puerperium (principal); R12 Heartburn; Z3A.34 34 weeks gestation of pregnancy
CPT/HCPCS: 59025; G0463; 99213

== ENCOUNTER 2018-09-22 11:14 | Outpatient (CLI) | payer OTHER ==
[2018-09-22 12:18] LABS: Basophils % (A) 0 %; Eosinophils # (A) 0.1 k/uL (0-0.7); Eosinophils % (A) 2 %; HCT 37.9 % (34.0-46.0); HGB 12.2 gm/dL (11.4-16.0); Lymphocytes # (A) 1.6 k/uL (1.0-4.8); Lymphocytes % (A) 20 %; MCH 28.5 pg (25.0-35.0); MCHC 32.2 g/dL (31.0-37.0); MCV 88.6 fL (80.0-100.0); Mean Platelet Volume 9.3; Monocytes # (A) 0.7 k/uL (0-1.0); Monocytes % (A) 8 %; Neutrophils # (A) 5.8 k/uL (1.3-7.7); Neutrophils % (A) 68 %; Platelet Count 168 k/uL (150-450); RBC 4.28 m/uL (3.80-5.40); RDW 13.9 % (11.5-15.5); WBC 8.4 k/uL (4.0-11.0)
[2018-09-22 12:24] LABS: ALT 11 U/L (9-52); AST 14 U/L (14-36); African American GFR (CKD) >90 (>60 ml/min/1.73 sqM); Blood Urea Nitrogen 8 mg/dL (7-17); LDH 373 U/L (313-618); Uric Acid 5.2 mg/dL (3.7-7.4)
[2018-09-22 12:26] VITALS: BP 170/93; PULSE 110; RESP 18; TEMP 96.8
[2018-09-22 12:47] LABS: Appearance,Urine Cloudy (Clear); Bilirubin,Urine Negative (Negative); Blood,Urine Negative (Negative); Calcium Oxalate Crystals,Urine Moderate /hpf; Color,Urine Yellow; Glucose,Urine (UA) Negative (Negative); Ketones,Urine Negative (Negative); Leukocyte Esterase,Urine Negative (Negative); Mucus,Urine Few /hpf; Nitrite,Urine Negative (Negative); Protein,Urine 1+ (Negative); RBC,Urine 3 /hpf (0-5); Specific Gravity,Urine 1.033 (1.001-1.035); Squamous Epithelial Cell,Urine 7 /hpf (0-4); WBC,Urine 5 /hpf (0-5)
--- NOTE | 2018-09-22 12:51 | US ---
EXAMINATION TYPE: US OB BPP wo non-stress DATE OF EXAM: 09/22/2018 COMPARISON: US CLINICAL HISTORY: PIH. PIH, preeclampsia. Smoker. EXAM PERFORMED: Transabdominal (TA) BPP PARAMETERS: PRESENTATION: Vertex HEART RATE: 136 bpm RHYTHM: Normal CHANG: 14.93 cm DIAPHRAGM IMAGED: yes BPP SCORIN. Breathin (1 episode of breathing of 30 second duration in 30 minutes of scanning time) 2. Movement: 2 (at least 3 discrete body movements in 30 minutes) 3. Tone: 2 (1 episode of active flexion/extension of limb) 4. CHANG: 2 (CHANG index > 5cm) TOTAL SCORE: 8 / 8 Tech: NW/CF
--- NOTE | 2018-10-02 12:07 | P.MSEPDOC ---
Presenting Problems - Arrival Data Date of Arrival on Unit: 09/22/18 Time of Arrival on Unit: 11:15 Mode of Transport: Portable - Complaint OB-Reason for Admission/Chief Complaint: PIH Comment: pih lab workup, nst and bpp Medical History - Information : 1 Para: 0 Term: 0 : 0 Number of Living Children: 0 - Gestational Age Gestational Age by NAY (wks/days): 35 Weeks and 0 Days - History Complications: Chronic HTN Review of Systems - Review of Systems Constitutional: No problems Breast: No problems ENT: No problems Cardiovascular: No problems Respiratory: No problems Gastrointestinal: No problems Genitourinary: No problems Musculoskeletal: No problems Neurological: No problems Skin: No problems Vital Signs - Temperature Temperature: 96.8 F Temperature Source: Temporal Artery Scan - Pulse Right Brachial Pulse Rate: 110 - Respirations Respiratory Rate: 18 Oxygen Delivery Method: Room Air O2 Sat by Pulse Oximetry: 97 - Blood Pressure Right Arm Blood Pressure: 170/93 Blood Pressure Mean: 118 Blood Pressure Source: Automatic Cuff Medical Screen Scoring (Pre) - Cervical Exam Dilation: Exam Deferred Effacement: Exam Deferred Membranes: Intact - Uterine Contractions Frequency: N/A Duration: N/A Intensity: N/A - Maternal Vital Signs Maternal Temperature: N/A Maternal Blood Pressure: N/A Signs of Preeclampsia: N/A Maternal Respirations: N/A - Maternal Trauma Maternal Trauma: N/A - Assessment - Baby A Baseline FHR: 140 Heart Rate - NICHD Category: Category I (Normal) = 0 NST: Reactive Position: N/A Station: N/A - Total Score - Baby A Total Score - Baby A: 0 - Level of Risk - Baby A Level of Risk - Baby A: Low (0-5) - Pain Assessment Pain Scale Used: Numeric (1 - 10) Pain Intensity: 0 Physician Notification (Pre) - Physician Notified Spoke With: adilson New Order Received: Yes - Notification Comment Comment: discharge home. pt without s/sx of pih- no headache. blurred vision, epig pain or edema. dtr bilat patell. 2+ without clonus. labs wnl except 1+ proteinuria. protein creat ratio of 0.18. biophys profile 12/02/ to go home and resume orders as before. light activity. to return on sat or sun for repeat of nst and b/p rechecks. verb underst. Medical Screen Scoring (Post) - Cervical Exam Dilation: Exam Deferred Effacement: Exam Deferred Membranes: Intact - Uterine Contractions Frequency: N/A Duration: N/A Intensity: N/A - Maternal Vital Signs Maternal Temperature: N/A Maternal Blood Pressure: N/A Signs of Preeclampsia: N/A Maternal Respirations: N/A - Pain Assessment Pain Scale Used: Numeric (1 - 10) Pain Intensity: 0 - Maternal Trauma Maternal Trauma: N/A - Assessment - Baby A Heart Rate: 135 Heart Rate - NICHD Category: Category I (Normal) = 0 NST: Reactive Position: N/A Station: N/A - Total Score Total Score - Baby A: 0 - Post Treatment Level of Risk Post Treatment Level of Risk - Baby A: Low (0-5) Physician Notification (Post) - Physician Notified Physician Notified Date: 09/22/18 Physician Notified Time: 13:30 Spoke With: adilson Negrete Order Received: Yes - Notification Comment Comment: discharge home. return thu or thursday for rpeeat nst and b/p rechecks Disposition - Disposition OB Disposition: Discharge to home Discharge Date: 09/22/18 Discharge Time: 13:30 I agree with the RN Medical Screening Exam: Yes Risk & Benefit of care provided described in d/c instruction: Yes Diagnosis: GESTATIONAL HTN W/O SIGNIFICANT PROTEINURIA, THIRD TRIMESTER
== END 2018-09-22 13:30 | disposition home or self-care (01) ==
LOC: FBPOP 11:14
PROVIDERS: ATTEND Obstetrics & Gynecology
DX: O13.3 Gestational [pregnancy-induced] hypertension without significant proteinuria, third trimester (principal); Z3A.35 35 weeks gestation of pregnancy
CPT/HCPCS: 59025; 82570; 84156; 82565; 83615; 84450; 84460; 84520; 84550; 85025; 81001; 76819; G0463 ×2; 99213; 99215

== ENCOUNTER 2018-09-22 23:00 | Outpatient (CLI) | payer OTHER ==
[2018-09-22 23:30] VITALS: BP 143/88; PULSE 76; RESP 16; TEMP 98.3
--- NOTE | 2018-09-23 03:46 | P.MSEPDOC ---
Presenting Problems - Arrival Data Date of Arrival on Unit: 09/22/18 Time of Arrival on Unit: 23:00 Mode of Transport: Ambulatory - Complaint OB-Reason for Admission/Chief Complaint: Headache Comment: Patient presents to triage with complaints of a headache that started around 1600 this evening and is unrelieved with tylenol, patient was seen in triage earlier today around 1300 and labs were drawn at that time. Medical History - Information : 1 Para: 0 Term: 0 : 0 Abortions: Spontaneous or Elective: 0 Number of Living Children: 0 - Gestational Age Gestational Age by NAY (wks/days): 35 Weeks and 0 Days - History Comment: Patient states that Dr. Cavanaugh told her she is in the "beginning st ages of pre-eclampsia" Review of Systems - Review of Systems Constitutional: No problems Breast: No problems ENT: No problems Cardiovascular: No problems Respiratory: No problems Gastrointestinal: No problems Genitourinary: No problems Musculoskeletal: No problems Neurological: No problems Skin: No problems Vital Signs - Temperature Temperature: 98.3 F Temperature Source: Temporal Artery Scan - Pulse Pulse Oximetery Pulse Rate: 76 Pulse Assessment Method: Automatic Cuff - Respirations Respiratory Rate: 16 Oxygen Delivery Method: Room Air - Blood Pressure Sitting Blood Pressure: 143/88 Blood Pressure Mean: 106 Blood Pressure Source: Automatic Cuff Medical Screen Scoring (Pre) - Cervical Exam Dilation: Exam Deferred Effacement: Exam Deferred Membranes: Intact - Uterine Contractions Frequency: N/A Duration: N/A Intensity: N/A - Maternal Vital Signs Maternal Temperature: N/A Maternal Blood Pressure: Systolic >139 = 2 Signs of Preeclampsia: Headache = 1 Maternal Respirations: N/A - Pain Assessment Pain Location and Character: Generalized, Head Pain Scale Used: Numeric (1 - 10) Pain Intensity: 9 Pain Management Goal: 5 Pain Description: Aching Pain Radiation Location: 0 Pain Frequency: Constant Pain Duration: 6 Pain Duration Units: Hours Pain Behavior: Vocalization Effects of Pain: 0 - Maternal Trauma Maternal Trauma: N/A - Assessment Baseline FHR: 130 Heart Rate - NICHD Category: Category I (Normal) = 0 NST: Reactive Position: N/A Station: N/A - Total Score Total Score (Pre): 3 - Level of Risk Level of Risk: Low (0-5) Physician Notification (Pre) - Physician Notified Physician Notified Date: 09/22/18 Physician Notified Time: 23:24 Physician/Practitioner Notifed:: Dr. Carl New Order Received: Yes - Notification Comment Comment: Orders given to discharge patient home with instructions and to keep regularly scheduled appt with Dr. Cavanaugh Disposition - Disposition OB Disposition: Discharge to home, Written follow up instructions reviewed Discharge Date: 09/22/18 Discharge Time: 23:35 I agree with the RN Medical Screening Exam: Yes Risk & Benefit of care provided described in d/c instruction: Yes Diagnosis: GESTATIONAL HTN W/O SIGNIFICANT PROTEINURIA, THIRD TRIMESTER (Patient presented with complaints of a headache. Patient was here earlier today and had evaluation per Dr. Heaton for gestational hypertension. Laboratory evaluation was normal. Patient was discharged home to follow up with Dr. Heaton in the office. Repeat blood pressures at this time are good and actually improved from being here earlier today. heart tones are category 1. Patient was instructed to follow up with Dr. Heaton on Thursday or earlier if other concerns and to return to labor and delivery if any continued concerns. There is no evidence of maternal compromise at this time.)
== END 2018-09-22 23:35 | disposition home or self-care (01) ==
LOC: FBPOP 23:00
PROVIDERS: ATTEND Obstetrics & Gynecology
DX: O13.3 Gestational [pregnancy-induced] hypertension without significant proteinuria, third trimester (principal); Z3A.35 35 weeks gestation of pregnancy
CPT/HCPCS: 59025; G0463; 99213

== ENCOUNTER 2018-09-25 13:55 | Outpatient (CLI) | payer OTHER ==
[2018-09-25 15:02] VITALS: BP 145/87; PULSE 113; RESP 16; TEMP 98.5
--- NOTE | 2018-09-26 11:35 | P.MSEPDOC ---
Presenting Problems - Arrival Data Date of Arrival on Unit: 09/25/18 Time of Arrival on Unit: 13:55 Mode of Transport: Ambulatory - Complaint OB-Reason for Admission/Chief Complaint: NST, Elevated Blood Pressure Comment: pt here for weekly NST and BP check Medical History - Information : 1 Para: 0 Term: 0 : 0 Abortions: Spontaneous or Elective: 0 Number of Living Children: 0 - Gestational Age Gestational Age by NYA (wks/days): 35 Weeks and 3 Days - History Complications: Preeclampsia, Smoker Review of Systems - Review of Systems Constitutional: No problems Breast: No problems ENT: No problems Cardiovascular: No problems Respiratory: No problems Gastrointestinal: No problems Genitourinary: No problems Musculoskeletal: No problems Neurological: No problems Skin: No problems Vital Signs - Temperature Temperature: 98.5 F Temperature Source: Oral - Pulse Right Brachial Pulse Rate: 113 Pulse Assessment Method: Automatic Cuff - Respirations Respiratory Rate: 16 Oxygen Delivery Method: Room Air O2 Sat by Pulse Oximetry: 96 - Blood Pressure Right Arm Blood Pressure: 145/87 Blood Pressure Mean: 106 Blood Pressure Source: Automatic Cuff Medical Screen Scoring (Pre) - Cervical Exam Dilation: Exam Deferred - Uterine Contractions Frequency: N/A Duration: N/A Intensity: N/A - Maternal Vital Signs Maternal Temperature: N/A Maternal Blood Pressure: Systolic >139 = 2 Signs of Preeclampsia: N/A Maternal Respirations: N/A - Pain Assessment Pain Scale Used: Numeric (1 - 10) Pain Intensity: 0 Pain Behavior: None Exhibited - Assessment Baseline FHR: 135 Heart Rate - NICHD Category: Category I (Normal) = 0 NST: Reactive Position: N/A - Total Score Total Score (Pre): 2 - Level of Risk Level of Risk: Low (0-5) Physician Notification (Pre) - Physician Notified Physician Notified Date: 09/25/18 Physician Notified Time: 14:47 Physician/Practitioner Notifed:: Mil Spoke With: Mil New Order Received: No - Notification Comment Comment: pt ma be discharged home Physician Notification (Post) - Physician Notified Physician Notified Date: 09/25/18 Physician Notified Time: 14:47 Physician/Practitioner Notified:: Mil Spoke With: Mil New Order Received: No - Notification Comment Comment: pt here for weekly NST and BP check Disposition - Disposition OB Disposition: Discharge to home Discharge Date: 09/25/18 Discharge Time: 14:50 I agree with the RN Medical Screening Exam: Yes Risk & Benefit of care provided described in d/c instruction: Yes Diagnosis: GESTATIONAL HTN W/O SIGNIFICANT PROTEINURIA, THIRD TRIMESTER
== END 2018-09-25 14:50 | disposition home or self-care (01) ==
LOC: FBPOP 13:55
PROVIDERS: ATTEND Obstetrics & Gynecology
DX: O13.3 Gestational [pregnancy-induced] hypertension without significant proteinuria, third trimester (principal); O99.333 Smoking (tobacco) complicating pregnancy, third trimester; Z3A.35 35 weeks gestation of pregnancy
CPT/HCPCS: 59025; G0463; 99213

== ENCOUNTER 2018-09-28 10:05 | Inpatient (IN) | payer OTHER ==
[2018-09-28 10:49] LABS: Basophils % (A) 0 %; Eosinophils # (A) 0.1 k/uL (0-0.7); Eosinophils % (A) 1 %; HCT 38.7 % (34.0-46.0); Lymphocytes # (A) 1.4 k/uL (1.0-4.8); Lymphocytes % (A) 21 %; MCH 29.6 pg (25.0-35.0); MCHC 33.7 g/dL (31.0-37.0); MCV 87.9 fL (80.0-100.0); Mean Platelet Volume 9.5; Monocytes # (A) 0.5 k/uL (0-1.0); Monocytes % (A) 7 %; Neutrophils # (A) 4.6 k/uL (1.3-7.7); Neutrophils % (A) 68 %; Platelet Count 170 k/uL (150-450); WBC 6.8 k/uL (4.0-11.0)
[2018-09-28 10:53] LABS: ALT 8 U/L (9-52); AST 15 U/L (14-36); African American GFR (CKD) >90 (>60 ml/min/1.73 sqM); Blood Urea Nitrogen 7 mg/dL (7-17); LDH 380 U/L (313-618); Uric Acid 4.8 mg/dL (3.7-7.4)
[2018-09-28] MEDS ORDERED: LABETALOL 100 MG TAB PO STA (11:07)
--- NOTE | 2018-09-28 11:51 | US ---
EXAMINATION TYPE: US OB BPP wo non-stress DATE OF EXAM: 09/28/2018 COMPARISON: US CLINICAL HISTORY: preeclamsia. Preeclampsia. Smoker. EXAM PERFORMED: Transabdominal (TA) BPP PARAMETERS: PRESENTATION: Cephalic LIE: Long?? HEART RATE: 141 bpm RHYTHM: Normal CHANG: 16.37 DIAPHRAGM IMAGED: Yes BPP SCORIN. Breathin (1 episode of breathing of 30 second duration in 30 minutes of scanning time) 2. Movement: 2 (at least 3 discrete body movements in 30 minutes) 3. Tone: 2 (1 episode of active flexion/extension of limb) 4. CHANG: 2 (CHANG index > 5cm) TOTAL SCORE: 8 / 8
[2018-09-28 11:53] LABS: Appearance,Urine Cloudy (Clear); Bacteria,Urine Rare /hpf; Bilirubin,Urine Negative (Negative); Blood,Urine Negative (Negative); Color,Urine Yellow; Glucose,Urine (UA) Negative (Negative); Ketones,Urine Negative (Negative); Leukocyte Esterase,Urine Negative (Negative); Mucus,Urine Rare /hpf; Nitrite,Urine Negative (Negative); Protein,Urine 1+ (Negative); RBC,Urine <1 /hpf (0-5); Specific Gravity,Urine 1.028 (1.001-1.035); Squamous Epithelial Cell,Urine 9 /hpf (0-4); Urobilinogen,Urine <2.0 mg/dL (<2.0); WBC,Urine 3 /hpf (0-5)
--- NOTE | 2018-09-28 12:20 | US ---
EXAMINATION TYPE: US OB >= 14 wk fetus DATE OF EXAM: 09/28/2018 COMPARISON: US CLINICAL HISTORY: preeclampsiaPreeclampsia. Smoker. TECHNIQUE: Transabdominal (TA) GESTATIONAL AGE / DATING Physician Established: (35 weeks/6 days) EDC: 10/27/2018 Dates by LMP: Unknown Dates by First Scan: (36 weeks/2 days) EDC: 10/24/2018 Dates by Current Scan: (34 weeks/6 days) EDC: 11/03/2018 SURVEY IUP: Single PLACENTA: Anterior PREVIA: No Previa CHANG: 16.08 cm Normal CERVICAL LENGTH (transabdominal: norm > 3.0cm): 3.48 cm BIOMETRY PRESENTATION: Vertex LIE: Longitudinal BPD: 9.0 cm 36 weeks / 3 days HC: 31.61 cm 35 weeks / 4 days AC: 31.29 cm 35 weeks / 2 days FL: 6.69 cm 34 weeks / 3 days ESTIMATED WEIGHT IN GRAMS: 2608 grams ESTIMATED WEIGHT IN LBS/OZ: 5 lbs. 12 oz. WEIGHT PERCENTAGE BASED ON ESTABLISHED DATES: 31.0% HC/AC: 1.01 Normal FL/AC: 21.38 Normal HEART RATE: 139 bpm RHYTHM: Normal Could only get one set of head measurements due to position. IMPRESSION: Limited survey. Single viable intrauterine corresponding to ultrasound age 34 weeks 6 days with estimated date of delivery 11/03/2018.
[2018-09-28] MEDS ORDERED: OXYTOCIN 10 UNIT/ML 1 ML VIAL IM PRN (12:42)
[2018-09-28] MEDS ORDERED: TERBUTALINE 1 MG/ML VIAL SQ PRN (12:42)
[2018-09-28] MEDS ORDERED: CARBOPROST TROMETHAMINE 250 MCG/ML 1 ML AMP IM PRN (12:42)
[2018-09-28] MEDS ORDERED: METHYLERGONOVINE 0.2 MG/ML 1 ML AMP IM PRN (12:42)
[2018-09-28] MEDS ORDERED: LIDOCAINE 0.5% (PF) 5 MG/ML (50 ML SDV) SQ PRN (12:42)
[2018-09-28] MEDS ORDERED: OXYTOCIN 30 UNITS/500 ML NS 30 UNIT in SALINE 1 500ML.BAG IV SCH (12:45)
[2018-09-28] MEDS ORDERED: hydrALAZINE HCL 20 MG/ML 1 ML VIAL IVP PRN (12:47)
[2018-09-28] MEDS ORDERED: LABETALOL SYRINGE 5 MG/ML IVP PRN ×3 (12:47)
--- NOTE | 2018-09-28 12:53 | P.HPOB ---
History of Present Illness H&P Date: 09/28/18 Chief Complaint: Intrauterine at term: Preeclampsia versus severe gestational hype Patient is a 18-year-old at 35 weeks 6 days gestation who ryes the office with elevated blood pressure again today. She is been followed with maternal medicine and has had a history of elevated blood pressures since approximately 30 weeks. She was admitted to [facility] with suspected preeclampsia earlier in the and we have followed her closely ever since. Today seen in the office her blood pressures 156/94 and she was sent to labor and delivery for biophysical profile, NST and her weekly blood work. Blood work is all returned basically normal with an high normal routine creatinine ratio of 0.25. However, in labor and deliver her blood pressures have ranged anywhere from 150/92 170/95. Due to the significant elevation in her blood pressure and her complaining of some headaches and some minimal visual changes we are admitting her and planning induction of labor at the advice of maternal- medicine. I did speak with dr Freedman and this was the recommendation we came up with. She did receive 2 doses of steroids approximately 3 weeks ago. As such there is limited benefit from repeating the dose of steroids this time. She'll be 36 weeks in all likelihood by the time she delivers tonight. Risks of delivery were reviewed with the patient in detail but all questions have been answered for her. In multiple discussions with maternal- medicine the expectation was that she would end up delivering sometime between 36 and 37 week s anyway as our concern was that her preeclampsia would rapidly worsen which it may be in the process of doing today. On physical exam vital signs again show elevated blood pressure otherwise are stable. Heart regular, lungs clear, extremities without pain. There is minimal edema noted bilateral lower extremity. Her deep tendon reflexes are +2 bilaterally. Labs again reviewed with no clear preeclamptic numbers. She is not in help. At this time due to her minimal outward symptomatology and essentially normal labs will plan on starting mag sulfate, however if she begins to have more elevations in her blood pressure or other medications are required to help control her blood pressure a full catheter will be placed and she will be started on magnesium sulfate. She is aware of these risks, would very much like to at least get her into labor before we need to start her on mag sulfate. She is aware of increased risk for section as well and if her blood pressures continued to be significantly elevated and we're unable to control them well and she is remote from delivery she will undergo a section. Assessment intrauterine with atypical preeclampsia/gestational hypertension Plan Pitocin augmentation of labor and artificial rupture membranes with expectation for spontaneous vaginal delivery. She does have significant scoliosis so IV pain medicine will be used rather than an epidural. The real question will be how bad as her scoliosis with regard to needing a spinal should she need a section will have anesthesia do an evaluation and make re commendations. Past Medical History Past Medical History: Musculoskeletal Disorder Additional Past Medical History / Comment(s): scoliosis History of Any Multi-Drug Resistant Organisms: None Reported Past Surgical History: No Surgical Hx Reported Past Anesthesia/Blood Transfusion Reactions: No Reported Reaction Smoking Status: Current every day smoker - Past Family History Father Family Medical History: Coronary Artery Disease (CAD) Mother Family Medical History: Hypertension Medications and Allergies Home Medications Medication Instructions Recorded Confirmed Type Acetaminophen [Tylenol] 1,000 mg PO Q6HR PRN 09/22/18 09/28/18 History Calcium Carbonate [Tums] 1 tab PO DAILY 09/25/18 09/28/18 History Allergies Allergy/AdvReac Type Severity Reaction Status Date / Time amoxicillin Allergy Severe Swelling Verified 09/28/18 10:15 medroxyprogesterone Allergy Severe Swelling Verified 09/28/18 10:15 [From Depo-Provera] Exam Osteopathic Statement: *. No significant issues noted on an osteopathic structural exam other than those noted in the History and Physical/Consult. Vital Signs Temp Pulse Resp BP 09/28/18 10:46 105 H 18 164/89 09/28/18 10:31 104 H 174/92 09/28/18 10:16 97.6 F 107 H 18 169/94 Intake and Output 09/27/18 09/28/18 09/28/18 22:59 06:59 14:59 Other: Weight 106.594 kg Results Result Diagrams: 09/28/18 10:25 09/28/18 10:25 Abnormal Lab Results - Last 24 Hours (Table) 09/28/18 09/28/18 09/28/18 Range/Units 10:25 11:28 11:28 ALT 8 L (9-52) U/L Urine Appearance Cloudy H (Clear) Urine Protein 1+ H (Negative) Ur Squamous Epith Cells 9 H (0-4) /hpf Urine Bacteria Rare H (None) /hpf Urine Mucus Rare H (None) /hpf U Random Total Protein 50 H (<12) mg/dL
[2018-09-28] MEDS: LACTATED RINGERS 1,000 ML IV SCH (13:00)
[2018-09-28] MEDS ORDERED: CLINDAMYCIN 600 MG in DEXTROSE 5% IN WATER 50 ML IVPB SCH ×2 (13:15)
[2018-09-28] MEDS: CLINDAMYCIN 600 MG in DEXTROSE 5% IN WATER 50 ML IVPB SCH ×4 (13:46→21:45)
[2018-09-28 14:12] LABS: INR 0.8 (<1.2); Partial Thromboplastin Time 25.3 sec (22.0-30.0); Prothrombin Time 9.3 sec (9.0-12.0)
[2018-09-28 14:20] VITALS: BMI 36.8
[2018-09-28] MEDS ORDERED: AMPICILLIN 1,000 MG in SODIUM CHLORIDE 0.9% 50 ML IVPB SCH (16:44)
[2018-09-28] MEDS: BUTORPHANOL 1 MG/ML 1 ML VIAL IV PRN ×3 (17:19→21:17)
[2018-09-28 18:48] LABS: Amphetamine Screen,Urine Not Detected (NotDetected); Barbiturate Screen,Urine Not Detected (NotDetected); Benzodiazepines Screen,Urine Not Detected (NotDetected); Cocaine Screen,Urine Not Detected (NotDetected); Methadone Screen, Urine Not Detected (NotDetected); Opiate Screen,Urine Not Detected (NotDetected); Oxycodone Screen, Urine Not Detected (NotDetected); Phencyclidine Screen,Urine Not Detected (NotDetected); Tricyclic Antidepressant,Urine Not Detected (NotDetected); Urn Cannabinoid Scrn Detected (NotDetected)
[2018-09-28] MEDS: hydrALAZINE HCL 20 MG/ML 1 ML VIAL IVP STA ×2 (21:02→21:44)
[2018-09-28] MEDS ORDERED: SODIUM CHLORIDE 0.9% 100 ML BAG ONE (23:59)
[2018-09-28] MEDS ORDERED: fentaNYL (PF) 50 MCG/ML 5 ML AMP ONE (23:59)
[2018-09-28] MEDS ORDERED: ROPIVACAINE 5MG/ML 20ML VIAL ONE (23:59)
[2018-09-29] MEDS ORDERED: SIMETHICONE 80 MG CHEWABLE PO PRN (01:58)
[2018-09-29] MEDS ORDERED: ACETAMINOPHEN TAB 325 MG TAB PO PRN (01:58)
[2018-09-29] MEDS ORDERED: WITCH HAZEL 1 EACH MED..PAD TOPICAL PRN (01:58)
[2018-09-29] MEDS ORDERED: ZOLPIDEM 5 MG TAB PO PRN (01:58)
[2018-09-29] MEDS ORDERED: OXYTOCIN 20 UNITS/1000 ML NS 1,000 ML IV SCH (01:58)
[2018-09-29] MEDS ORDERED: diphenhydrAMINE 25 MG CAP PO PRN (01:58)
[2018-09-29] MEDS ORDERED: HYDROCORTISONE 2.5% RECTAL CREAM 30 GM TUBE RECTAL PRN (01:58)
[2018-09-29] MEDS ORDERED: diphenhydrAMINE 50 MG/ML 1 ML VIAL IVP PRN ×2 (01:58)
[2018-09-29] MEDS ORDERED: LANOLIN CREAM 5 GM TUBE TOPICAL PRN (01:58)
[2018-09-29] MEDS ORDERED: BENZOCAINE/MENTHOL SPRAY 1 GM/SPRAY AEROSOL TOPICAL PRN (01:58)
[2018-09-29] MEDS ORDERED: diphenhydrAMINE 50 MG CAP PO PRN (01:58)
--- NOTE | 2018-09-29 02:08 | P.PROBDLV ---
Vaginal Delivery Note - . Vaginal Delivery Note: The patient progressed to complete dilation after oxytocin induction of labor and artificial rupture membranes with clear fluid noted. She did receive several doses of Stadol followed by epidural when she reached approximately 7 and half centimeters. Once reaching complete dilation, she began pushing. Infant's head came to a crown. With one further push, the infant's head delivered across the perineum followed immediately by the anterior shoulder and the body. Infant was placed on mother's abdomen and brisk cry was noted immediately. A viable male infant was noted with scores of 8 at 1 minute and 9 at 5 minutes. Infant weight is pending at this time. Placenta delivered shortly thereafter, with partial manual delivery due to one area that was adherent. After the placenta did deliver, a gloved hand was placed into the intrauterine cavity and a rough edge was palpated on the anterior lower uterine wall and some remaining membranes were removed manually. No further tissue was palpated. Uterus did contract well after oxytocin was given and uterine massage was carried out. Bladder was also drained with a red rubber catheter. Inspection of the perineum revealed no perineal lacerations. Estimated blood loss is approximately 150 mL. Mother and infant are in stable condition.
[2018-09-29] MEDS: IBUPROFEN 600 MG TAB PO PRN ×2 (05:19→23:33)
[2018-09-29 07:41] LABS: Basophils % (A) 0 %; Eosinophils % (A) 0 %; HGB 12.1 gm/dL (11.4-16.0); Lymphocytes # (A) 1.4 k/uL (1.0-4.8); Lymphocytes % (A) 7 %; MCH 28.5 pg (25.0-35.0); MCHC 32.6 g/dL (31.0-37.0); MCV 87.4 fL (80.0-100.0); Mean Platelet Volume 9.9; Monocytes # (A) 1.3 k/uL (0-1.0); Monocytes % (A) 7 %; Neutrophils # (A) 15.6 k/uL (1.3-7.7); Neutrophils % (A) 85 %; Platelet Count 170 k/uL (150-450); RBC 4.23 m/uL (3.80-5.40); RDW 14.9 % (11.5-15.5); WBC 18.4 k/uL (4.0-11.0)
[2018-09-29] MEDS ORDERED: DIPH,PERTUS(ACELL)TETVAC-LF 0.5 ML VIAL IM ONE (08:52)
[2018-09-29] MEDS: SENNOSIDES-DOCUSATE SODIUM 1 EACH TAB PO SCH ×2 (11:13→16:24)
[2018-09-30] MEDS ORDERED: BENZOCAINE/MENTHOL LOZENG 1 EACH LOZENGE MUCOUS MEM PRN (08:53)
--- NOTE | 2018-09-30 08:53 | P.PNOBGVD ---
Subjective - Subjective Principal diagnosis: Status post vaginal delivery day #1 Interval history: Patient states bleeding is slowing down. Pain is fairly well controlled with ibuprofen. She is complaining of some leg swelling. She also complains of a sore throat this morning. Patient reports: Reports appetite normal, Reports voiding normally, Reports pain well controlled, Reports ambulating normally [place]: nursing well, other (In level I nursery on [facility]) Objective - Latest Vital Signs Latest vital signs: Vital Signs Temp Pulse Resp BP 09/30/18 06:09 73 16 09/30/18 00:00 98.3 F 73 16 144/85 09/29/18 20:00 98.5 F 93 16 146/78 09/29/18 16:00 97.8 F 88 16 153/67 09/29/18 12:00 98.1 F 89 16 140/77 Intake and Output 09/29/18 09/30/18 09/30/18 22:59 06:59 14:59 Other: # Voids 1 2 - Exam Extremities: Present: edema. Absent: tenderness Abdomen: Present: normal appearance, soft. Absent: distention, tenderness Uterus: Present: normal, firm. Absent: tenderness Assessment and Plan Assessment: Status post vaginal delivery day #1, gestational hypertension-blood pressures mildly elevated at this time. Plan: We'll continue care and monitoring of blood pressures. Anticipate discharge home tomorrow.
[2018-09-30] MEDS: SENNOSIDES-DOCUSATE SODIUM 1 EACH TAB PO SCH ×2 (16:39→23:54)
[2018-09-30] MEDS: LACTATED RINGERS 1,000 ML IV SCH (21:12)
[2018-09-30] MEDS: IBUPROFEN 600 MG TAB PO PRN (23:53)
[2018-10-01 00:16] VITALS: RESP 16
[2018-10-01] MEDS: IBUPROFEN 600 MG TAB PO PRN ×2 (08:34→16:04)
[2018-10-01] MEDS: SENNOSIDES-DOCUSATE SODIUM 1 EACH TAB PO SCH (08:39)
[2018-10-01 09:33] VITALS: BP 150/82; PULSE 77; TEMP 97.9
--- NOTE | 2018-10-01 09:50 | P.DS ---
Providers Date of admission: 09/28/18 12:36 Expected date of discharge: 10/01/18 Attending physician: Lester Cavanaugh Primary care physician: Stated None Hospital Course: Mariluz is doing very well day 2. She is involuting, voiding and tolerating her diet. She is voicing no complaints and is requesting discharge home today. Her vital signs were still showing mild elevations in blood pressure have not been high enough to treat at this time. She will follow up with us on Thursday for blood pressure check and reevaluation and to verify no other medications were treatments will be required. She is also aware that should she have any severe headaches, epigastric pain, visual changes or other signs or symptoms of preeclampsia that been discussed, she reports the emergency room. Otherwise all of the discharge instructions were reviewed with the patient. On physical exam vital signs again are as above. Heart regular, lungs clear, extremities without pain. Abdomen soft nontender. Possible bowel sounds are noted. Assessment day 2 with preeclampsia Plan discharged home follow up with me in 3 days and 6 weeks. Patient Condition at Discharge: Good Plan - Discharge Summary New Discharge Prescriptions: No Action Acetaminophen [Tylenol] 1,000 mg PO Q6HR PRN PRN Reason: Pain Calcium Carbonate [Tums] 1 tab PO DAILY Discharge Medication List Acetaminophen [Tylenol] 1,000 mg PO Q6HR PRN 09/22/18 [History] Calcium Carbonate [Tums] 1 tab PO DAILY 09/25/18 [History] Follow up Appointment(s)/Referral(s): Lester Cavanaugh DO [Doctor of Osteopathic Medicine] - 3 Days Activity/Diet/Wound Care/Special Instructions: No heavy lifting, limit stairs and driving, and pelvic rest. If any high temperatures, heavy bleeding, or severe pain call my office. She will return to our office on Thursday or Thursday for repeat blood pressure check. She is also aware should she have a severe headaches epigastric pain, or visual changes or other changes potentially related to preeclampsia she will report to the emergency room. Discharge Disposition: HOME SELF-CARE
== END 2018-10-01 16:45 | disposition home or self-care (01) | DRG 807 ==
LOC: FBPOP 10:05 → 4FBP 12:36
PROVIDERS: ADMIT Obstetrics & Gynecology; ATTEND Obstetrics & Gynecology
PROC: 10E0XZZ Delivery of Products of Conception, External Approach (ICD-10-PCS; principal; 2018-09-29)
PROC: 10907ZC Drainage of Amniotic Fluid, Therapeutic from Products of Conception, Via Natural or Artificial Opening (ICD-10-PCS; 2018-09-29)
PROC: 3E033VJ Introduction of Other Hormone into Peripheral Vein, Percutaneous Approach (ICD-10-PCS; 2018-09-29)
DX: O14.94 Unspecified pre-eclampsia, complicating childbirth (principal); Z37.0 Single live birth; O99.334 Smoking (tobacco) complicating childbirth; F17.210 Nicotine dependence, cigarettes, uncomplicated; Z3A.35 35 weeks gestation of pregnancy; M41.9 Scoliosis, unspecified; J02.9 Acute pharyngitis, unspecified; R51 Headache; Z82.49 Family history of ischemic heart disease and other diseases of the circulatory system; Z88.0 Allergy status to penicillin; Z88.8 Allergy status to other drugs, medicaments and biological substances
CPT/HCPCS: 59025; 76805; 76819; 80306; 81001; 82565; 82570; 83615; 84156; 84450; 84460; 84520; 84550; 85025; 85610; 85730; 86850; 86900; 86901; 88307; 90715

== ENCOUNTER 2020-02-17 17:24 | Outpatient (CLI) | payer OTHER ==
[2020-02-17 18:41] VITALS: BP 101/65; PULSE 86; RESP 16; TEMP 96.7
--- NOTE | 2020-02-18 09:28 | P.MSEPDOC ---
Presenting Problems - Arrival Data Date of Arrival on Unit: 02/17/20 Time of Arrival on Unit: 17:24 Mode of Transport: Ambulatory - Complaint OB-Reason for Admission/Chief Complaint: Pain Comment: "lost mucous plug" and lower abd pain Medical History - Information : 2 Para: 1 Term: 1 : 0 Abortions: Spontaneous or Elective: 0 Number of Living Children: 1 - Gestational Age Gestational Age by NAY (wks/days): 31 Weeks and 4 Days Review of Systems - Review of Systems Constitutional: No problems Breast: No problems ENT: No problems Cardiovascular: No problems Respiratory: No problems Gastrointestinal: No problems Genitourinary: No problems Musculoskeletal: No problems Neurological: No problems Skin: No problems Vital Signs - Temperature Temperature: 96.7 F Temperature Source: Temporal Artery Scan - Pulse Right Sitting Pulse Rate: 86 Pulse Assessment Method: Automatic Cuff - Respirations Respiratory Rate: 16 Oxygen Delivery Method: Room Air - Blood Pressure Right Arm Blood Pressure: 101/65 Blood Pressure Mean: 77 Blood Pressure Source: Automatic Cuff Medical Screen Scoring (Pre) - Cervical Exam Dilation: 0 cm = 0 Membranes: Intact - Uterine Contractions Frequency: N/A Duration: N/A Intensity: N/A - Maternal Vital Signs Maternal Temperature: N/A Maternal Blood Pressure: N/A Signs of Preeclampsia: N/A Maternal Respirations: N/A - Maternal Trauma Maternal Trauma: N/A - Assessment - Baby A Baseline FHR: 135 Heart Rate - NICHD Category: Category I (Normal) = 0 NST: Reactive Position: N/A Station: N/A - Total Score - Baby A Total Score - Baby A: 0 - Total Score - Baby B Total Score - Baby B: 0 - Total Score - Baby C Total Score - Baby C: 0 - Level of Risk - Baby A Level of Risk - Baby A: Low (0-5) - Level of Risk - Baby B Level of Risk - Baby B: Low (0-5) - Level of Risk - Baby C Level of Risk - Baby C: Low (0-5) Physician Notification (Pre) - Physician Notified Physician Notified Date: 02/17/20 Physician Notified Time: 18:30 New Order Received: Yes (d/c home) Disposition - Disposition OB Disposition: Discharge to home Discharge Date: 02/17/20 Discharge Time: 18:30 I agree with the RN Medical Screening Exam: Yes Risk & Benefit of care provided described in d/c instruction: Yes Diagnosis: FALSE LABOR BEFORE 37 COMPLETED WEEKS OF GEST, THIRD TRI
== END 2020-02-17 18:30 | disposition home or self-care (01) ==
LOC: FBPOP 17:24
PROVIDERS: ATTEND Obstetrics & Gynecology Obstetrics
DX: O47.03 False labor before 37 completed weeks of gestation, third trimester (principal); Z3A.31 31 weeks gestation of pregnancy
CPT/HCPCS: 59025; G0463; 99213

== ENCOUNTER 2020-03-23 13:19 | Outpatient (CLI) | payer OTHER ==
[2020-03-23 13:42] VITALS: BP 132/85; PULSE 80; RESP 20; TEMP 96.1
[2020-03-23] MEDS ORDERED: BUTORPHANOL 1 MG/ML 1 ML VIAL IV PRN (14:10)
[2020-03-23] MEDS: LACTATED RINGERS 1,000 ML IV SCH ×2 (14:19→15:45)
[2020-03-23 15:26] LABS: Amorphous Sediment,Urine Rare /hpf; Appearance,Urine Cloudy (Clear); Bacteria,Urine Many /hpf; Bilirubin,Urine Negative (Negative); Blood,Urine Small (Negative); Color,Urine Yellow; Glucose,Urine (UA) Negative (Negative); Ketones,Urine 2+ (Negative); Leukocyte Esterase,Urine Large (Negative); Mucus,Urine Moderate /hpf; Nitrite,Urine Negative (Negative); Protein,Urine 2+ (Negative); RBC,Urine 32 /hpf (0-5); Specific Gravity,Urine 1.032 (1.001-1.035); Squamous Epithelial Cell,Urine 12 /hpf (0-4); Urobilinogen,Urine <2.0 mg/dL (<2.0); WBC,Urine 108 /hpf (0-5)
--- NOTE | 2020-06-09 10:32 | P.MSEPDOC ---
Presenting Problems - Arrival Data Date of Arrival on Unit: 03/23/20 Time of Arrival on Unit: 13:20 Mode of Transport: Wheelchair - Complaint OB-Reason for Admission/Chief Complaint: Possible Onset of Labor, Pain Comment: rt sided pain flank. pain scale = 8-9. constant. incontanance of urine. Medical History - Information : 2 Para: 1 Term: 0 : 1 Abortions: Spontaneous or Elective: 0 Number of Living Children: 1 - Gestational Age Gestational Age by NAY (wks/days): 36 Weeks and 4 Days - History Complications: Hx. Substance Abuse Comment: uses thc and vapers daily Review of Systems - Review of Systems Constitutional: No problems Breast: No problems ENT: No problems Cardiovascular: No problems Respiratory: No problems Gastrointestinal: No problems Genitourinary: Urgency Musculoskeletal: No problems Neurological: No problems Skin: No problems Vital Signs - Temperature Temperature: 96.1 F Temperature Source: Temporal Artery Scan - Pulse Apical Pulse Rate: 80 Pulse Assessment Method: Automatic Cuff - Respirations Respiratory Rate: 20 Oxygen Delivery Method: Room Air - Blood Pressure Right Arm Blood Pressure: 132/85 Blood Pressure Mean: 100 Blood Pressure Source: Automatic Cuff Medical Screen Scoring (Pre) - Cervical Exam Dilation: 0 cm = 0 Effacement: More than 50% = 2 Membranes: Intact - Uterine Contractions Frequency: N/A Duration: N/A Intensity: N/A - Maternal Vital Signs Maternal Temperature: N/A Maternal Blood Pressure: N/A Signs of Preeclampsia: N/A Maternal Respirations: N/A - Maternal Trauma Maternal Trauma: N/A - Assessment - Baby A Baseline FHR: 130 Heart Rate - NICHD Category: Category I (Normal) = 0 Position: N/A Station: N/A - Total Score - Baby A Total Score - Baby A: 2 - Total Score - Baby B Total Score - Baby B: 2 - Total Score - Baby C Total Score - Baby C: 2 - Level of Risk - Baby A Level of Risk - Baby A: Low (0-5) - Level of Risk - Baby B Level of Risk - Baby B: Low (0-5) - Level of Risk - Baby C Level of Risk - Baby C: Low (0-5) Physician Notification (Pre) - Physician Notified Physician Notified Date: 03/23/20 Physician Notified Time: 14:00 New Order Received: Yes (continue to evaluate) Medical Screen Scoring (Post) - Cervical Exam Dilation: Exam Deferred Effacement: Exam Deferred Membranes: Intact - Uterine Contractions Frequency: N/A Duration: N/A Intensity: N/A - Maternal Vital Signs Maternal Temperature: N/A Maternal Blood Pressure: N/A Signs of Preeclampsia: N/A Maternal Respirations: N/A - Maternal Trauma Maternal Trauma: N/A - Assessment - Baby A Heart Rate: 125 Heart Rate - NICHD Category: Category I (Normal) = 0 NST: Reactive Position: N/A Station: N/A - Total Score Total Score - Baby A: 0 Total Score - Baby B: 0 Total Score - Baby C: 0 - Post Treatment Level of Risk Post Treatment Level of Risk - Baby A: Low (0-5) Post Treatment Level of Risk - Baby B: Low (0-5) Post Treatment Level of Risk - Baby C: Low (0-5) Physician Notification (Post) - Physician Notified Physician Notified Date: 03/23/20 Physician/Practitioner Notified:: [id number] Spoke With: Gregorio New Order Received: Yes - Notification Comment Comment: Chandrika cruz\Dr. Perkins, reviewed urinalysis results; orders rec'd for second bag. of LR bolus. Prescription being sent in to [facility] for Keflex 500mg PO TID and Tyl #3. Pt to follow up at scheduled appt on 03/27/20. Disposition - Disposition OB Disposition: Discharge to home, Written follow up instructions reviewed Discharge Date: 03/23/20 Discharge Time: 16:19 I agree with the RN Medical Screening Exam: Yes Physician's MSE Comment: I have neither seen nor examined the patient. Case reviewed; plan agreed upon as documented in EMR&OBIX.: Yes Diagnosis: RELATED CONDITIONS, UNSPECIFIED, THIRD TRIMESTER
== END 2020-03-23 16:07 | disposition home or self-care (01) ==
LOC: FBPOP 13:19
PROVIDERS: ATTEND Obstetrics & Gynecology
DX: O26.93 Pregnancy related conditions, unspecified, third trimester (principal); Z3A.36 36 weeks gestation of pregnancy
CPT/HCPCS: 59025; 96361; 96374; 84112; 81001; 87086; G0463; J0595; 96360; 99214

== ENCOUNTER 2020-04-09 06:00 | Inpatient (IN) | payer OTHER ==
[2020-04-09] MEDS ORDERED: CARBOPROST TROMETHAMINE 250 MCG/ML 1 ML AMP IM PRN (06:27)
[2020-04-09] MEDS ORDERED: METHYLERGONOVINE 0.2 MG/ML 1 ML AMP IM PRN (06:27)
[2020-04-09] MEDS ORDERED: TERBUTALINE 1 MG/ML VIAL SQ PRN (06:27)
[2020-04-09] MEDS ORDERED: LIDOCAINE 0.5% (PF) 5 MG/ML (50 ML SDV) SQ PRN (06:27)
[2020-04-09] MEDS ORDERED: OXYTOCIN 10 UNIT/ML 1 ML VIAL IM PRN (06:27)
[2020-04-09] MEDS: LACTATED RINGERS 1,000 ML IV SCH ×3 (06:40→11:14)
[2020-04-09] MEDS: OXYTOCIN 30 UNITS/500 ML NS 30 UNIT in SALINE 1 500ML.BAG IV SCH (06:50)
[2020-04-09 08:14] LABS: Basophils # (A) 0.1 k/uL (0-0.2); Basophils % (A) 1 %; Eosinophils # (A) 0.1 k/uL (0-0.7); Eosinophils % (A) 1 %; HCT 39.9 % (34.0-46.0); HGB 13.4 gm/dL (11.4-16.0); Lymphocytes # (A) 1.8 k/uL (1.0-4.8); Lymphocytes % (A) 19 %; MCH 29.5 pg (25.0-35.0); MCHC 33.7 g/dL (31.0-37.0); MCV 87.6 fL (80.0-100.0); Mean Platelet Volume 9.4; Monocytes # (A) 0.7 k/uL (0-1.0); Monocytes % (A) 7 %; Neutrophils # (A) 6.8 k/uL (1.3-7.7); Neutrophils % (A) 70 %; Platelet Count 175 k/uL (150-450); RBC 4.55 m/uL (3.80-5.40); RDW 13.1 % (11.5-15.5); WBC 9.7 k/uL (3.8-10.6)
[2020-04-09] MEDS ORDERED: SODIUM CHLORIDE 0.9% 100 ML BAG ONE (10:15)
[2020-04-09] MEDS ORDERED: ROPIVACAINE 5MG/ML 20ML VIAL ONE (10:15)
[2020-04-09] MEDS ORDERED: fentaNYL (PF) 50 MCG/ML 5 ML AMP ONE (10:15)
[2020-04-09] MEDS ORDERED: miSOPROStoL 200 MCG TAB RECTAL STA (12:35)
[2020-04-09] MEDS ORDERED: diphenhydrAMINE 50 MG/ML 1 ML VIAL IVP PRN ×2 (13:31)
[2020-04-09] MEDS ORDERED: ACETAMINOPHEN TAB 325 MG TAB PO PRN (13:31)
[2020-04-09] MEDS ORDERED: HYDROCORTISONE 2.5% RECTAL CREAM 30 GM TUBE RECTAL PRN (13:31)
[2020-04-09] MEDS ORDERED: BENZOCAINE/MENTHOL SPRAY 1 GM/SPRAY AEROSOL TOPICAL PRN (13:31)
[2020-04-09] MEDS ORDERED: diphenhydrAMINE 25 MG CAP PO PRN (13:31)
[2020-04-09] MEDS ORDERED: HYDROcodone/APAP 5-325MG 1 EACH TAB PO PRN (13:31)
[2020-04-09] MEDS ORDERED: LANOLIN CREAM 5 GM TUBE TOPICAL PRN (13:31)
[2020-04-09] MEDS ORDERED: ZOLPIDEM 5 MG TAB PO PRN (13:31)
[2020-04-09] MEDS ORDERED: SIMETHICONE 80 MG CHEWABLE PO PRN (13:31)
[2020-04-09] MEDS ORDERED: diphenhydrAMINE 50 MG CAP PO PRN (13:31)
--- NOTE | 2020-04-09 13:36 | P.HPOB ---
History of Present Illness H&P Date: 04/09/20 Chief Complaint: IUP at 39-0/7 weeks This is a 19-year-old that presents to labor and delivery for elective induction of labor. Patient has been receiving routine care which has been essentially uncomplicated. Patient has a history of preeclampsia with her last and has been on baby aspirin since 15 weeks. Blood pressures have been good this . Patient notes good movement denies contractions or loss of fluid. On bloodwork this patient has a blood type of B+, rubella status immune, hepatitis B surface antigen negative, HIV negative, RPR nonreactive group beta strep was negative. Review of Systems Constitutional: Denies chills, Denies fatigue, Denies fever Ears, nose, mouth and throat: Denies headache Cardiovascular: Reports leg edema Respiratory: Denies dyspnea Gastrointestinal: Denies nausea, Denies vomiting Genitourinary: Reports Past Medical History Past Medical History: Asthma, Musculoskeletal Disorder Additional Past Medical History / Comment(s): scoliosis History of Any Multi-Drug Resistant Organisms: None Reported Past Surgical History: No Surgical Hx Reported Past Anesthesia/Blood Transfusion Reactions: No Reported Reaction Past Psychological History: Depression Additional Psychological History / Comment(s): not diagnosed, no meds Smoking Status: Current every day smoker, Vaper Past Alcohol Use History: None Reported Past Drug Use History: Marijuana Additional Drug Use History / Comment(s): Marijuana use during pregnacny - Past Family History Father Family Medical History: Coronary Artery Disease (CAD) Mother Family Medical History: Hypertension Medications and Allergies Home Medications Medication Instructions Recorded Confirmed Type Aspirin 81 mg PO DAILY 02/17/20 04/09/20 History Allergies Allergy/AdvReac Type Severity Reaction Status Date / Time amoxicillin Allergy Severe Swelling Verified 03/23/20 13:25 medroxyprogesterone Allergy Severe Swelling Verified 03/23/20 13:25 [From Depo-Provera] Exam Osteopathic Statement: *. No significant issues noted on an osteopathic structural exam other than those noted in the History and Physical/Consult. 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 Results Result Diagrams: 04/09/20 07:47 Assessment and Plan (1) Term Current Visit: Yes Status: Acute Code(s): Z34.90 - ENCNTR FOR SUPRVSN OF NORMAL , UNSP, UNSP TRIMESTER SNOMED Code(s): 92645511 Plan: Patient is admitted to labor and delivery for scheduled elective induction of labor. Pitocin is started per hospital protocol. Patient is offered epidural versus Stadol she states she will consider. Anticipate spontaneous vaginal delivery.
--- NOTE | 2020-04-09 13:38 | P.PROBDLV ---
Vaginal Delivery Note - . Vaginal Delivery Note: This pleasant 19-year-old at 39-0/7 weeks was admitted to labor and delivery for planned Pitocin induction of labor. Pitocin was begun per hospital protocol. Amniotomy was performed once regular contractions were noted and clear fluid was obtained. Patient progressed through labor becoming uncomfortable and requesting epidural. Epidural was placed no minimal relief was noted. Patient progressed quickly to complete began pushing and had a normal spontaneous vaginal delivery of a viable male at 1206, weight of 6 lbs. 11 oz. and Apgars of 9 and 9 at one and 5 minutes respectively. did have a loose nuchal cord at delivery and this was reduced at the perineum. After two-minute delay the umbilical cord was doubly clamped and cut and the was handed off to maternal abdomen. The placenta was then delivered spontaneously intact with a three-vessel cord being noted. On inspection the patient's vaginal vault a periurethral laceration was noted and this was repaired in the usual fashion with 4-0 chromic. Hemostasis was appreciated afterwards. Patient did sustain a hemorrhage just after delivery secondary to uterine atony the bladder was drained for approximately 100 mL of clear yellow urine Methergine and rectal Cytotec were given. Uterus was then firm and below the umbilicus. Estimated blood loss 600 mL. Patient and tolerated delivery well and are resting comfortably. All counts were noted be correct 2 at the end of the delivery.
[2020-04-09] MEDS: OXYTOCIN 20 UNITS/1000 ML NS 1,000 ML IV SCH ×2 (14:25→14:26)
[2020-04-09] MEDS: IBUPROFEN 600 MG TAB PO PRN (15:37)
[2020-04-10] MEDS: SENNOSIDES-DOCUSATE SODIUM 1 EACH TAB PO SCH ×2 (07:13→08:26)
[2020-04-10] MEDS: IBUPROFEN 600 MG TAB PO PRN (07:17)
[2020-04-10 07:25] LABS: Basophils % (A) 0 %; Eosinophils % (A) 0 %; HCT 30.7 % (34.0-46.0); Lymphocytes % (A) 19 %; MCH 28.6 pg (25.0-35.0); MCV 86.7 fL (80.0-100.0); Mean Platelet Volume 10.2; Monocytes # (A) 0.7 k/uL (0-1.0); Monocytes % (A) 6 %; Neutrophils # (A) 7.6 k/uL (1.3-7.7); Neutrophils % (A) 73 %; Platelet Count 148 k/uL (150-450); RBC 3.54 m/uL (3.80-5.40); RDW 13.5 % (11.5-15.5); WBC 10.4 k/uL (3.8-10.6)
[2020-04-10 07:35] LABS: HGB 10.1 gm/dL (11.4-16.0)
--- NOTE | 2020-04-10 07:38 | P.DS ---
Providers Date of admission: 04/09/20 06:00 Expected date of discharge: 04/10/20 Attending physician: Sherlyn Rosas Primary care physician: Stated None - Discharge Diagnosis(es) (1) Term Current Visit: Yes Status: Acute (2) Status post vaginal delivery Current Visit: Yes Status: Acute (3) Obstetric vaginal laceration with first degree perineal laceration Current Visit: Yes Status: Acute Hospital Course: This is a 19-year-old presented to labor and delivery yesterday for elective induction of labor at 39-0/7 weeks. Patient was admitted to labor and delivery Pitocin induction of labor was begun without difficulty. Patient soon became uncomfortable after rupture of membranes and requested epidural placement. Minimal relief was noted after epidural placement and she quickly progressed to complete and had a normal spontaneous vaginal delivery of a viable male infant at 1206, weight of 6 lbs. 11 oz. and Apgars of 9 and 9 at one and 5 minutes respectively. Patient's course has been uneventful. Patient is ambulating and voiding without difficulty, she states her pain is well-controlled, her lochia is minimal. She does wish discharge home at 24 hours. Patient Condition at Discharge: Good Plan - Discharge Summary New Discharge Prescriptions: No Action Aspirin 81 mg PO DAILY Discharge Medication List Aspirin 81 mg PO DAILY 02/17/20 [History]
--- NOTE | 2020-04-10 07:41 | P.DS ---
Providers Date of admission: 04/09/20 06:00 Expected date of discharge: 04/10/20 Attending physician: Sherlyn Rosas Primary care physician: Stated None - Discharge Diagnosis(es) (1) Term Current Visit: Yes Status: Acute (2) Status post vaginal delivery Current Visit: Yes Status: Acute (3) Obstetric vaginal laceration with first degree perineal laceration Current Visit: Yes Status: Acute Hospital Course: This is a 19-year-old para 2 para 0101 that presented to labor and delivery at 39 0/7 weeks for elective induction of labor. Patient was admitted to labor and delivery and Pitocin induction of labor was begun. Patient progressed through labor amniotomy was performed and clear fluid was obtained. Patient soon requested an epidural. Epidural was placed without difficulty but the patient received minimal relief after placement. Patient quickly progressed to complete began pushing and had a normal spontaneous vaginal delivery of a viable infant at 1206, weight of 6 lbs. 11 oz. and Apgars of 9 and 9 at one and 5 minutes respectively. Patient's course has been uneventful. This day #1 she is involuting and voiding without difficulty. She is tolerating a regular diet without nausea or vomiting. Her lochia is minimal and she is breast feeding. She would like discharge home. Patient Condition at Discharge: Good Plan - Discharge Summary New Discharge Prescriptions: No Action Aspirin 81 mg PO DAILY Discharge Medication List Aspirin 81 mg PO DAILY 02/17/20 [History] Follow up Appointment(s)/Referral(s): Sherlyn Rosas DO [Doctor of Osteopathic Medicine] - 4 Weeks Patient Instructions/Handouts: Vaginal Delivery (GEN), Vaginal Delivery (DC) Activity/Diet/Wound Care/Special Instructions: [id number] ibuprofen as needed for discomfort, patient can expect menstrual-like bleeding for 4-6 weeks . If patient should have any concerns prior to her 4 week post check she is to call the office. Discharge Disposition: HOME SELF-CARE
[2020-04-10 08:16] VITALS: RESP 15
[2020-04-10] MEDS: LACTATED RINGERS 1,000 ML IV SCH (08:17)
[2020-04-10] MEDS: OXYTOCIN 30 UNITS/500 ML NS 30 UNIT in SALINE 1 500ML.BAG IV SCH (08:17)
[2020-04-10 12:13] VITALS: BP 145/81; PULSE 59; TEMP 97.9
== END 2020-04-10 13:34 | disposition home or self-care (01) | DRG 806 ==
LOC: 4FBP 06:00
PROVIDERS: ADMIT Obstetrics & Gynecology Obstetrics; ATTEND Obstetrics & Gynecology Obstetrics
PROC: 3E0R3BZ Introduction of Anesthetic Agent into Spinal Canal, Percutaneous Approach (ICD-10-PCS; principal; 2020-04-09)
PROC: 3E033VJ Introduction of Other Hormone into Peripheral Vein, Percutaneous Approach (ICD-10-PCS; principal; 2020-04-09)
PROC: 00HU33Z Insertion of Infusion Device into Spinal Canal, Percutaneous Approach (ICD-10-PCS; principal; 2020-04-09)
PROC: 10907ZC Drainage of Amniotic Fluid, Therapeutic from Products of Conception, Via Natural or Artificial Opening (ICD-10-PCS; principal; 2020-04-09)
PROC: 0HQ9XZZ Repair Perineum Skin, External Approach (ICD-10-PCS; principal; 2020-04-09)
PROC: 10E0XZZ Delivery of Products of Conception, External Approach (ICD-10-PCS; principal; 2020-04-09)
DX: O69.81X0 Labor and delivery complicated by cord around neck, without compression, not applicable or unspecified (principal); O72.1 Other immediate postpartum hemorrhage; Z37.0 Single live birth; O70.0 First degree perineal laceration during delivery; O99.334 Smoking (tobacco) complicating childbirth; F17.290 Nicotine dependence, other tobacco product, uncomplicated; M41.9 Scoliosis, unspecified; O99.892 Other specified diseases and conditions complicating childbirth; K21.9 Gastro-esophageal reflux disease without esophagitis; O99.62 Diseases of the digestive system complicating childbirth; Z3A.39 39 weeks gestation of pregnancy; Z79.82 Long term (current) use of aspirin; Z88.0 Allergy status to penicillin; Z88.8 Allergy status to other drugs, medicaments and biological substances; Z87.09 Personal history of other diseases of the respiratory system; Z86.59 Personal history of other mental and behavioral disorders
CPT/HCPCS: 85025; 86850; 86900; 86901

== ENCOUNTER → 2020-11-29 | Outpatient (CLI) | payer OTHER | END | disposition home or self-care (01) | LOC: LABWHC1 10:50 | PROVIDERS: ATTEND Obstetrics & Gynecology Obstetrics | DX: O20.0 Threatened abortion (principal); Z3A.00 Weeks of gestation of pregnancy not specified | CPT/HCPCS: 36415; 84702; 86850; 86900; 86901 ==

== ENCOUNTER → 2020-12-01 | Outpatient (CLI) | payer OTHER | END | disposition home or self-care (01) | LOC: LABWHC1 09:57 | PROVIDERS: ATTEND Obstetrics & Gynecology Obstetrics | DX: O20.0 Threatened abortion (principal); Z3A.00 Weeks of gestation of pregnancy not specified | CPT/HCPCS: 36415; 84702 ==

== ENCOUNTER → 2020-12-05 | Outpatient (CLI) | payer OTHER | END | disposition home or self-care (01) | LOC: LABWHC1 14:27 | PROVIDERS: ATTEND Obstetrics & Gynecology Obstetrics | DX: O02.1 Missed abortion (principal); Z3A.00 Weeks of gestation of pregnancy not specified | CPT/HCPCS: 36415; 84702 ==

== ENCOUNTER 2023-01-26 08:08 | Outpatient (CLI) | payer OTHER ==
[2023-01-26] MEDS ORDERED: ONDANSETRON 4 MG/2 ML VIAL IVP PRN (09:00)
[2023-01-26] MEDS ORDERED: LACTATED RINGERS 1,000 ML IV ONE (09:00)
[2023-01-26 09:30] LABS: Amorphous Sediment,Urine Rare /hpf; Appearance,Urine Cloudy (Clear); Bacteria,Urine Rare /hpf; Bilirubin,Urine Negative (Negative); Blood,Urine Negative (Negative); Color,Urine Light Yellow; Glucose,Urine (UA) Negative (Negative); Granular Casts,Urine 1 /lpf (0); Ketones,Urine Negative (Negative); Leukocyte Esterase,Urine Negative (Negative); Mucus,Urine Rare /hpf; Nitrite,Urine Negative (Negative); Protein,Urine Trace (Negative); RBC,Urine <1 /hpf (0-5); Squamous Epithelial Cell,Urine 1 /hpf (0-4); Urobilinogen,Urine <2.0 mg/dL (<2.0); WBC,Urine 1 /hpf (0-5)
[2023-01-26 10:17] VITALS: BP 134/87; PULSE 81; RESP 16; TEMP 97.7
--- NOTE | 2023-02-10 16:38 | P.MSEPDOC ---
Presenting Problems - Arrival Data Date of Arrival on Unit: 01/26/23 Time of Arrival on Unit: 08:08 Mode of Transport: Ambulatory - Complaint OB-Reason for Admission/Chief Complaint: Acute Nausea/Vomiting, Headache Comment: pt presents to triage with c/o briggs/emesis since last night, reports emesis x4 and decreased movements Medical History - Information : 4 Para: 2 Term: 2 : 0 Abortions: Spontaneous or Elective: 1 Number of Living Children: 2 - Gestational Age Gestational Age by NAY (wks/days): 23 Weeks and 1 Days - History Comment: hx of pre eclampsia, placeta previa with current Review of Systems - Review of Systems Constitutional: No problems Breast: No problems ENT: No problems Cardiovascular: No problems Respiratory: No problems Gastrointestinal: No problems Genitourinary: No problems Musculoskeletal: No problems Neurological: No problems Skin: No problems Vital Signs - Temperature Temperature: 97.7 F Temperature Source: Temporal Artery Scan - Pulse Right Brachial Pulse Rate: 81 Pulse Assessment Method: Automatic Cuff - Respirations Respiratory Rate: 16 Oxygen Delivery Method: Room Air O2 Sat by Pulse Oximetry: 98 - Blood Pressure Right Arm Blood Pressure: 134/87 Blood Pressure Mean: 102 Blood Pressure Source: Automatic Cuff Medical Screen Scoring - Assessment - Baby A Baseline FHR: 145 Physician Notification - Physician Notified Physician Notified Date: 01/26/23 Physician Notified Time: 09:46 Physician: Sherlyn Rosas New Order Received: Yes (dc home) Maternal Triage Index - Urgent/Priority 2 Urgent Priority 2: Yes Provider Notified: Sherlyn Rosas Provider Notified Time: 08:58 Criteria Met for Priority 2: orders given for u/a and iv hydration Disposition - Disposition OB Disposition: Discharge to home, Written follow up instructions reviewed Discharge Date: 01/26/23 Discharge Time: 10:00 I agree with the RN Medical Screening Exam: Yes Case reviewed; plan agreed upon as documented in EMR&OBIX.: Yes Diagnosis: RELATED CONDITIONS, UNSPECIFIED, SECOND TRIMESTER
== END 2023-01-26 10:00 | disposition home or self-care (01) ==
LOC: FBPOP 08:08
PROVIDERS: ATTEND Obstetrics & Gynecology Obstetrics
DX: O26.892 Other specified pregnancy related conditions, second trimester (principal); O21.9 Vomiting of pregnancy, unspecified; O99.332 Smoking (tobacco) complicating pregnancy, second trimester; R51.9 Headache, unspecified; F17.200 Nicotine dependence, unspecified, uncomplicated; Z3A.23 23 weeks gestation of pregnancy; Z88.0 Allergy status to penicillin; Z88.8 Allergy status to other drugs, medicaments and biological substances; Z79.82 Long term (current) use of aspirin
CPT/HCPCS: 96374; 81001; G0463; J2405; 99215

== ENCOUNTER 2023-04-14 10:08 | Outpatient (CLI) | payer OTHER ==
[2023-04-14 10:52] LABS: Appearance,Urine Clear (Clear); Bilirubin,Urine Negative (Negative); Blood,Urine Negative (Negative); Color,Urine Colorless; Glucose,Urine (UA) Negative (Negative); Ketones,Urine Negative (Negative); Leukocyte Esterase,Urine Negative (Negative); Nitrite,Urine Negative (Negative); PH, Urine 6.5 (5.0-8.0); Protein,Urine Negative (Negative); Urobilinogen,Urine <2.0 mg/dL (<2.0)
[2023-04-14 12:01] VITALS: BP 127/78; PULSE 91; RESP 16; TEMP 98.1
--- NOTE | 2023-05-18 16:29 | P.MSEPDOC ---
Presenting Problems - Arrival Data Date of Arrival on Unit: 04/14/23 Time of Arrival on Unit: 10:08 Mode of Transport: Ambulatory - Complaint OB-Reason for Admission/Chief Complaint: Other Comment: Cramping. Medical History - Information : 4 Para: 2 Term: 2 : 0 Abortions: Spontaneous or Elective: 1 Number of Living Children: 2 - Gestational Age Gestational Age by NAY (wks/days): 34 Weeks and 2 Days - History Complications: Smoker Review of Systems - Review of Systems Constitutional: No problems Breast: No problems ENT: No problems Cardiovascular: No problems Respiratory: No problems Gastrointestinal: No problems Genitourinary: No problems Musculoskeletal: No problems Neurological: No problems Skin: No problems Vital Signs - Temperature Temperature: 98.1 F Temperature Source: Oral - Pulse Right Brachial Pulse Rate: 91 Pulse Assessment Method: Automatic Cuff - Respirations Respiratory Rate: 16 Oxygen Delivery Method: Room Air O2 Sat by Pulse Oximetry: 97 - Blood Pressure Right Arm Blood Pressure: 127/78 Blood Pressure Mean: 94 Blood Pressure Source: Automatic Cuff Medical Screen Scoring - Cervical Exam Dilation (cm): 1.5 Effacement (%): 50 Station: -3 Membranes: Intact - Assessment - Baby A Baseline FHR: 130 Heart Rate - NICHD Category: Category I (Normal) NST: Reactive Physician Notification - Physician Notified Physician Notified Date: 04/14/23 Physician Notified Time: 11:31 Physician: Sherlyn Rosas New Order Received: Yes - Notification Comment Comment: Dr. Rosas in dept. FHTs and UA results reviewed by Dr. Bernal contractions per TOCO or palpation. Vag exam of 1.5/thick/-3. Orders recieved to d/c pt to home. Maternal Triage Index - Urgent/Priority 2 Urgent Priority 2: Yes Provider Notified: Sherlyn Rosas Provider Notified Time: 10:28 Criteria Met for Priority 2: Pt c/o of cramping that started lastnight. Orders recieved per Dr. Rosas to send UA and perform vag exam. Disposition - Disposition OB Disposition: Discharge to home Discharge Date: 04/14/23 Discharge Time: 11:35 I agree with the RN Medical Screening Exam: Yes Case reviewed; plan agreed upon as documented in EMR&OBIX.: Yes Diagnosis: RELATED CONDITIONS, UNSPECIFIED, THIRD TRIMESTER
== END 2023-04-14 11:35 | disposition home or self-care (01) ==
LOC: FBPOP 10:08
PROVIDERS: ATTEND Obstetrics & Gynecology Obstetrics
DX: O26.893 Other specified pregnancy related conditions, third trimester (principal); R25.2 Cramp and spasm; O99.333 Smoking (tobacco) complicating pregnancy, third trimester; F17.200 Nicotine dependence, unspecified, uncomplicated; F12.90 Cannabis use, unspecified, uncomplicated; Z3A.34 34 weeks gestation of pregnancy; Z88.0 Allergy status to penicillin; Z88.8 Allergy status to other drugs, medicaments and biological substances; Z79.82 Long term (current) use of aspirin
CPT/HCPCS: 59025; 81003; G0463; 99213

== ENCOUNTER 2023-04-25 05:31 | Outpatient (CLI) | payer OTHER ==
[2023-04-25 06:11] LABS: Amorphous Sediment,Urine Rare /hpf; Appearance,Urine Cloudy (Clear); Bacteria,Urine Rare /hpf; Bilirubin,Urine Negative (Negative); Blood,Urine Negative (Negative); Color,Urine Colorless; Glucose,Urine (UA) Negative (Negative); Ketones,Urine Negative (Negative); Leukocyte Esterase,Urine Negative (Negative); Mucus,Urine Rare /hpf; Nitrite,Urine Negative (Negative); PH, Urine 7.5 (5.0-8.0); Protein,Urine Negative (Negative); Specific Gravity,Urine 1.006 (1.001-1.035); Squamous Epithelial Cell,Urine <1 /hpf (0-4); Urobilinogen,Urine <2.0 mg/dL (<2.0); WBC,Urine 1 /hpf (0-5)
[2023-04-25 07:12] VITALS: BP 132/74; PULSE 84; RESP 16; TEMP 96.5
--- NOTE | 2023-04-29 17:29 | P.MSEPDOC ---
Presenting Problems - Arrival Data Date of Arrival on Unit: 04/25/23 Time of Arrival on Unit: 05:31 Mode of Transport: Ambulatory - Complaint OB-Reason for Admission/Chief Complaint: Other Comment: Pt presents to triage with complaints of urinary urgency and frequency, abdominal cramping that radiates down her legs x2 days. pt also states that she is having some foul smelling vaginal discharge. Medical History - Information : 4 Para: 2 Term: 2 : 0 Abortions: Spontaneous or Elective: 1 Number of Living Children: 2 - Gestational Age Gestational Age by NAY (wks/days): 35 Weeks and 6 Days Review of Systems - Review of Systems Constitutional: No problems Breast: No problems ENT: No problems Cardiovascular: No problems Respiratory: No problems Gastrointestinal: No problems Genitourinary: Urgency, Increased frequency Musculoskeletal: No problems Neurological: No problems Skin: No problems Vital Signs - Temperature Temperature: 96.5 F Temperature Source: Temporal Artery Scan - Pulse Pulse Oximetery Pulse Rate: 84 Pulse Assessment Method: Pulse Oximetry - Respirations Respiratory Rate: 16 Oxygen Delivery Method: Room Air O2 Sat by Pulse Oximetry: 95 - Blood Pressure Right Arm Blood Pressure: 132/74 Blood Pressure Mean: 93 Blood Pressure Source: Automatic Cuff Medical Screen Scoring - Cervical Exam Membranes: Intact - Uterine Contractions Intensity: Absent - Assessment - Baby A Baseline FHR: 130 Heart Rate - NICHD Category: Category I (Normal) NST: Reactive Physician Notification - Physician Notified Physician Notified Date: 04/25/23 Physician Notified Time: 06:00 Physician: Cassie Hernandez Order Received: Yes - Notification Comment Comment: Dr. Hernandez on unit for delivery. Informed of pt complaints, GA,G/P, FHT reviewed, UA sent. UA results pending at this time Maternal Triage Index - Maternal Triage Index Presenting for scheduled procedure w/no complaint: No - Stat/Priority 1 Stat Priority 1: No - Urgent/Priority 2 Urgent Priority 2: No - Prompt/Priority 3 Prompt Priority 3: No - Non-Urgent/Priority 4 Non-Urgent Priority 4: Yes Criteria Met for Priority 4: Pt presents to triage with complaints of urinary urgency and frequency, abdominal cramping that radiates down her legs x2 days. pt also states that she is having some foul smelling vaginal discharge. Disposition - Disposition OB Disposition: Discharge to home Discharge Date: 04/25/23 Discharge Time: 06:30 I agree with the RN Medical Screening Exam: Yes Physician's MSE Comment: I have neither seen nor examined the patient. Case reviewed; plan agreed upon as documented in EMR&OBIX.: Yes Diagnosis: RELATED CONDITIONS, UNSPECIFIED, THIRD TRIMESTER
== END 2023-04-25 06:30 | disposition home or self-care (01) ==
LOC: FBPOP 05:31
PROVIDERS: ATTEND Obstetrics & Gynecology
DX: O26.893 Other specified pregnancy related conditions, third trimester (principal); R10.9 Unspecified abdominal pain; N89.8 Other specified noninflammatory disorders of vagina; R39.15 Urgency of urination; O99.333 Smoking (tobacco) complicating pregnancy, third trimester; F17.200 Nicotine dependence, unspecified, uncomplicated; O99.323 Drug use complicating pregnancy, third trimester; F12.90 Cannabis use, unspecified, uncomplicated; Z3A.35 35 weeks gestation of pregnancy; Z88.0 Allergy status to penicillin; Z88.8 Allergy status to other drugs, medicaments and biological substances; Z79.82 Long term (current) use of aspirin
CPT/HCPCS: 59025; 81001; 87086; G0463; 99213

== ENCOUNTER 2023-05-18 06:02 | Inpatient (IN) | payer OTHER ==
[2023-05-18] MEDS ORDERED: miSOPROStoL 200 MCG TAB PO PRN (06:12)
[2023-05-18] MEDS ORDERED: METHYLERGONOVINE 0.2 MG/ML 1 ML AMP IM PRN (06:12)
[2023-05-18] MEDS ORDERED: OXYTOCIN 10 UNIT/ML 1 ML VIAL IM PRN (06:12)
[2023-05-18] MEDS ORDERED: TRANEXAMIC 1,000 MG/100ML-NACL 1,000 MG in EMPTY BAG 1 BAG IV PRN (06:12)
[2023-05-18] MEDS ORDERED: CARBOPROST TROMETHAMINE 250 MCG/ML 1 ML AMP IM PRN (06:12)
[2023-05-18] MEDS ORDERED: TERBUTALINE 1 MG/ML VIAL SQ PRN (06:12)
[2023-05-18] MEDS ORDERED: LIDOCAINE 0.5% (PF) 5 MG/ML (50 ML SDV) SQ PRN (06:12)
[2023-05-18] MEDS ORDERED: OXYTOCIN 30 UNITS/500 ML NS 30 UNIT in SALINE 1 500ML.BAG IV SCH ×2 (06:15→11:15)
[2023-05-18 06:37] LABS: Basophils % (A) 0 %; Eosinophils # (A) 0.1 k/uL (0-0.7); Eosinophils % (A) 2 %; HGB 14.1 gm/dL (11.4-16.0); Lymphocytes # (A) 1.9 k/uL (1.0-4.8); Lymphocytes % (A) 20 %; MCHC 34.3 g/dL (31.0-37.0); MCV 87.5 fL (80.0-100.0); Mean Platelet Volume 9.1; Monocytes # (A) 0.6 k/uL (0-1.0); Monocytes % (A) 6 %; Neutrophils # (A) 6.4 k/uL (1.3-7.7); Neutrophils % (A) 70 %; Platelet Count 180 k/uL (150-450); RBC 4.69 m/uL (3.80-5.40); RDW 13.1 % (11.5-15.5); WBC 9.3 k/uL (3.8-10.6)
[2023-05-18] MEDS: LACTATED RINGERS 1,000 ML IV SCH ×2 (06:51→09:36)
[2023-05-18 07:34] LABS: Amphetamine Screen,Urine Not Detected (NotDetected); Barbiturate Screen,Urine Not Detected (NotDetected); Benzodiazepines Screen,Urine Not Detected (NotDetected); Cocaine Screen,Urine Not Detected (NotDetected); Methadone Screen, Urine Not Detected (NotDetected); Opiate Screen,Urine Not Detected (NotDetected); Oxycodone Screen, Urine Not Detected (NotDetected); Phencyclidine Screen,Urine Not Detected (NotDetected); Tricyclic Antidepressant,Urine Not Detected (NotDetected); Urn Cannabinoid Scrn Detected (NotDetected)
[2023-05-18] MEDS ORDERED: SODIUM CHLORIDE 0.9% 250 ML BAG ONE (09:15)
[2023-05-18] MEDS ORDERED: fentaNYL (PF) 50 MCG/ML 5 ML AMP ONE (09:15)
[2023-05-18] MEDS ORDERED: ROPIVACAINE 5 MG/ML 30 ML VIAL ONE (09:15)
--- NOTE | 2023-05-18 11:07 | P.HPOB ---
History of Present Illness H&P Date: 05/18/23 Chief Complaint: IUP at 39 weeks This is a 22-year-old 4 para 2011 at 39 weeks of presents for elective induction of labor. Patient has been receiving routine care with myself which has been essentially uncomplicated. Patient is without concerns this morning. She notes good movement and irregular contractions denies vaginal bleeding or loss of fluid. On blood work she has a blood type of B+, rubella status immune, hep Bee surface antigen negative, HIV negative, RPR is nonreactive, group beta strep culture is negative. Review of Systems Constitutional: Denies chills, Denies fatigue, Denies fever Ears, nose, mouth and throat: Denies headache Cardiovascular: Reports leg edema Respiratory: Denies dyspnea Gastrointestinal: Denies constipation, Denies diarrhea, Denies nausea, Denies vomiting Genitourinary: Reports Past Medical History Past Medical History: Asthma, Musculoskeletal Disorder Additional Past Medical History / Comment(s): scoliosis History of Any Multi-Drug Resistant Organisms: None Reported Past Surgical History: No Surgical Hx Reported Past Anesthesia/Blood Transfusion Reactions: No Reported Reaction Past Psychological History: Depression Additional Psychological History / Comment(s): not diagnosed, no meds Smoking Status: Vaper Past Alcohol Use History: None Reported Past Drug Use History: Marijuana Additional Drug Use History / Comment(s): Marijuana use during pregnacny - Past Family History Father Family Medical History: Coronary Artery Disease (CAD) Mother Family Medical History: Hypertension Medications and Allergies Home Medications Medication Instructions Recorded Confirmed Type Aspirin 81 mg PO DAILY 02/17/20 04/25/23 History Allergies Allergy/AdvReac Type Severity Reaction Status Date / Time amoxicillin Allergy Severe Swelling Verified 04/14/23 10:20 medroxyprogesterone Allergy Severe Swelling Verified 04/14/23 10:20 [From Depo-Provera] Exam Osteopathic Statement: *. No significant issues noted on an osteopathic structural exam other than those noted in the History and Physical/Consult. 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 On cervical exam she is 4/70/-2 6 vtx presentation Results Result Diagrams: 05/18/23 06:20 Abnormal Lab Results - Last 24 Hours (Table) 05/18/23 Range/Units 07:13 U Marijuana (THC) Screen Detected H (NotDetected) Assessment and Plan (1) Term Current Visit: No Status: Acute Code(s): Z34.90 - ENCNTR FOR SUPRVSN OF NORMAL , UNSP, UNSP TRIMESTER SNOMED Code(s): 62993183 Plan: 22-year-old 4 para 2011 at 39 weeks of that presents for induction of labor. Patient is admitted Pitocin induction of labor is begun per hospital protocol. Patient is desirous of epidural when appropriate. And states 20 Delivery.
--- NOTE | 2023-05-18 11:09 | P.PROBDLV ---
Vaginal Delivery Note - . Vaginal Delivery Note: Findings: Viable male infant delivered at 1042, weight of 7 lbs. 10 oz. This is 22 yo old 4 para 1112 at 39 1/7 weeks that presented for induction of labor. Patient was admitted and Pitocin induction of labor is begun. Amniotomy was performed and clear fluid was obtained. Patient soon became uncomfortable requested epidural placement. Epidural was placed without difficulty by the anesthesia department. Patient progressed quickly to complete began pushing and had a normal spent taste vaginal delivery of a viable male infant at 1042, weight of 7 lbs. 10 oz., Apgars of 8 and 9 at one and 5 minutes respectively. Placenta was delivered spontaneously intact with a three-vessel cord being noted. A small first-degree vaginal abrasion was appreciated and repaired with 3-0 Rapide in a [id number] fashion. Bleeding was noted to be breast therefore Methergine was given 1. Uterus was noted to firm and bleeding slowed after injection. Estimated blood loss 200 mL. Patient and infant tolerated delivery well, WILL be correct 2.
[2023-05-18] MEDS ORDERED: HYDROCORTISONE 2.5% RECTAL CREAM 30 GM TUBE RECTAL PRN (11:10)
[2023-05-18] MEDS ORDERED: ACETAMINOPHEN TAB 325 MG TAB PO PRN (11:10)
[2023-05-18] MEDS ORDERED: LANOLIN CREAM 5 GM TUBE TOPICAL PRN (11:10)
[2023-05-18] MEDS ORDERED: ZOLPIDEM 5 MG TAB PO PRN (11:10)
[2023-05-18] MEDS ORDERED: diphenhydrAMINE 50 MG/ML 1 ML VIAL IVP PRN ×2 (11:10)
[2023-05-18] MEDS ORDERED: diphenhydrAMINE 50 MG CAP PO PRN (11:10)
[2023-05-18] MEDS ORDERED: BENZOCAINE/MENTHOL SPRAY 1 GM/SPRAY AEROSOL TOPICAL PRN (11:10)
[2023-05-18] MEDS ORDERED: SIMETHICONE 80 MG CHEWABLE PO PRN (11:10)
[2023-05-18] MEDS ORDERED: diphenhydrAMINE 25 MG CAP PO PRN (11:10)
[2023-05-18] MEDS: IBUPROFEN 600 MG TAB PO SCH ×2 (18:06→18:26)
[2023-05-18] MEDS: SENNOSIDES-DOCUSATE SODIUM 1 EACH TAB PO SCH (19:58)
[2023-05-18 20:10] VITALS: RESP 16
[2023-05-19] MEDS: IBUPROFEN 600 MG TAB PO SCH ×2 (00:21→06:50)
[2023-05-19 08:42] VITALS: BP 134/84; PULSE 84; TEMP 97.9
[2023-05-19] MEDS: SENNOSIDES-DOCUSATE SODIUM 1 EACH TAB PO SCH (08:45)
--- NOTE | 2023-05-19 09:05 | P.DS ---
Providers Date of admission: 05/18/23 06:02 Expected date of discharge: 05/19/23 Attending physician: Sherlyn Rosas Primary care physician: Stated None - Discharge Diagnosis(es) (1) Term Current Visit: No Status: Acute (2) Obstetric vaginal laceration with first degree perineal laceration Current Visit: No Status: Acute (3) Status post vaginal delivery Current Visit: No Status: Acute Hospital Course: This is a 22-year-old 4 now para 2113 that presented to labor and delivery for induction of labor on 05/18. Patient had been receiving routine care with myself just been essentially uncomplicated. Patient was admitted to labor and delivery and Pitocin induction of labor was begun per hospital protocol. Amniotomy was performed and clear fluid was obtained. Patient soon became uncomfortable and requested epidural placement. Epidural was placed without difficulty by the anesthesia department. Patient quickly progressed to complete began pushing and had a normal spontaneous vaginal delivery of a viable male at 1042, weight of 7 lbs. 10 oz., Apgars of 8 and 9 at one and 5 minutes respectively. A first-degree vaginal laceration was appreciated and repaired with a [id number] suture of 3-0 Rapide. Bleeding was noted to be pressed and 1 dose of Methergine was given . Patient's course has been uneventful. On this day #1 she is ambulating and voiding without difficulty. She is tolerating a regular diet without nausea or vomiting. She states her pain is well-controlled. Leading has been appropriate for status. She denies concerns and would like discharge home. She is tearful this morning and states she would like to monitor removed before starting medication. depression precautions are reviewed. Plan close follow-up in 2 weeks Patient Condition at Discharge: Good Plan - Discharge Summary New Discharge Prescriptions: No Action Aspirin 81 mg PO DAILY Discharge Medication List Aspirin 81 mg PO DAILY 02/17/20 [History] Follow up Appointment(s)/Referral(s): Sherlyn Rosas DO [Doctor of Osteopathic Medicine] - 2 Weeks Patient Instructions/Handouts: Vaginal Delivery (DC), Vaginal Delivery (GEN) Activity/Diet/Wound Care/Special Instructions: No tub baths or intercourse until 6 weeks , [id number] ibuprofen 600 mg or 3 tablets every 6 hours as needed for pain. Mood/ depression symptoms are discussed she states understanding plan close follow-up in 2 weeks for reevaluation. She is urged to call the office with any changes in mood or concerns. Discharge Disposition: HOME SELF-CARE
== END 2023-05-19 12:45 | disposition home or self-care (01) | DRG 560 ==
LOC: 4FBP 06:02
PROVIDERS: ADMIT Obstetrics & Gynecology Obstetrics; ATTEND Obstetrics & Gynecology Obstetrics
PROC: 3E033VJ Introduction of Other Hormone into Peripheral Vein, Percutaneous Approach (ICD-10-PCS; principal; 2023-05-18)
PROC: 0HQ9XZZ Repair Perineum Skin, External Approach (ICD-10-PCS; principal; 2023-05-18)
PROC: 10E0XZZ Delivery of Products of Conception, External Approach (ICD-10-PCS; principal; 2023-05-18)
PROC: 10907ZC Drainage of Amniotic Fluid, Therapeutic from Products of Conception, Via Natural or Artificial Opening (ICD-10-PCS; principal; 2023-05-18)
DX: O99.52 Diseases of the respiratory system complicating childbirth (principal); O70.0 First degree perineal laceration during delivery; M41.9 Scoliosis, unspecified; O99.344 Other mental disorders complicating childbirth; O71.82 Other specified trauma to perineum and vulva; J45.909 Unspecified asthma, uncomplicated; F32.A Depression, unspecified; O99.324 Drug use complicating childbirth; F12.90 Cannabis use, unspecified, uncomplicated; Z37.0 Single live birth; Z3A.39 39 weeks gestation of pregnancy; Z79.82 Long term (current) use of aspirin; Z88.0 Allergy status to penicillin; Z88.8 Allergy status to other drugs, medicaments and biological substances; Z28.310 Unvaccinated for COVID-19; Z28.21 Immunization not carried out because of patient refusal
CPT/HCPCS: 80306; 85025; 86850; 86900; 86901